=== PATIENT | male | born 1975 | race Caucasian/White ===

== ENCOUNTER 2021-03-31 12:45 | Inpatient (IN) ==
[2021-03-31] MEDS ORDERED: dexAMETHasone 6 MG in SYRINGE 0 ML IV ONE (13:20)
[2021-03-31] MEDS ORDERED: DEXAMETHASONE SOD INJ 4 MG/ML VIAL ONE (13:23)
[2021-03-31 13:59] LABS: Hematocrit (blood only) 45.2 % (42-52); Hemoglobin 15.5 g/dL (14.0-18.0); Immature Granulocytes # (auto) 0.01 K/uL (0.00-0.02); Immature Granulocytes % (auto) 0.1 %; Lymphocytes # (auto) 1.17 K/uL (1.2-3.4); Lymphocytes % (auto) 17.2 %; Mean Corpuscular Hemoglobin 31.5 pg (25-34); Mean Corpuscular Hgb Conc 34.3 g/dL (32-36); Mean Corpuscular Volume 91.9 fL (80-100); Mean Platelet Volume 9.9 fL (7.4-10.4); Monocytes # (auto) 0.23 K/uL (0.11-0.59); Monocytes % (auto) 3.4 %; Neutrophils # (auto) 5.39 K/uL (1.4-6.5); Neutrophils % (auto) 79.3 %; Platelet Count 248 K/uL (130-400); RDW Coefficient of Variation 12.7 % (11.5-14.5); RDW Standard Deviation 42.6 fL (36.4-46.3); Red Blood Count 4.92 M/uL (4.7-6.1)
[2021-03-31 14:09] LABS: Partial Thromboplastin Time 25.2 Seconds (21.0-31.0); Prothrombin Time 9.9 Seconds (9.0-12.0)
[2021-03-31 14:16] LABS: Albumin Level 2.8 gm/dl (3.4-5.0); BUN Creatinine Ratio 14.9 (10-20); Blood Urea Nitrogen 11 mg/dl (7-18); Calcium 8.5 mg/dl (8.5-10.1); Carbon Dioxide 29 mmol/L (21-32); Chloride 103 mmol/L (98-107); Creatinine Clr Calc Pharmacy 159.1 ml/min; Est GFR (African American) 128.9 ml/min; Est GFR (Non-African American) 111.2 ml/min; Glucose 225 mg/dl (70-99); Magnesium 2.1 mg/dl (1.8-2.4); Potassium 3.7 mmol/L (3.5-5.1); Sodium 138 mmol/L (136-145)
[2021-03-31 14:21] LABS: Alanine Aminotransferase 23 U/L (12-78); Albumin Globulin Ratio 0.6 (0.9-2); Alkaline Phosphatase 67 U/L (45-117); Aspartate Aminotransferase 22 U/L (15-37); Bilirubin,Total 0.9 mg/dl (0.2-1); Globulin 4.5 gm/dl (2.5-4.0); Total Protein 7.3 gm/dl (6.4-8.2); Troponin I < 0.015 ng/ml (0-0.045)
[2021-03-31 14:38] LABS: HCO3 VBG 30 mmol/L; PCO2 VBG 53 mmHg (38-50); PO2 VBG 25 mmHg; pH VBG 7.37 (7.36-7.41)
[2021-03-31 14:41] LABS: Oxygen Saturation VBG < 60.0 %
--- NOTE | 2021-03-31 14:59 | XRay Report ---
XR chest 1V portable CLINICAL HISTORY: SEPSIS COMPARISON STUDY: None FINDINGS: No pneumothorax. No pleural effusion. Patchy airspace opacities are seen throughout bilateral lungs likely representing multifocal pneumoni a. Cardiomediastinal silhouette is within normal limits in size. Pulmonary vasculature is obscured.. Osseous structures: unremarkable IMPRESSION: 1. Extensive patchy opacities throughout bilateral lungs could represent multifocal pneumonia/Covid. ACT 112: Negative or not required by law. The above report was generated using voice recognition software. It may contain grammatical, syntax o r spelling errors. Electronically signed by: Chichi Langston DO 03/31/2021 2:58 PM
[2021-03-31] MEDS ORDERED: OPTIRAY 320 125ml IV ONE (16:11)
--- NOTE | 2021-03-31 16:32 | CT Scan Report ---
CT ANGIOGRAM OF THE CHEST CLINICAL HISTORY: Dyspnea. Hypoxia. COMPARISON STUDY: Chest x-ray dated 03/31/2021. TECHNIQUE: Following the IV administration of 118 cc of Optiray 320, CT angiogram of the chest was pe rformed from the upper abdomen to the thoracic inlet utilizing the pulmonary embolus protocol. Images are reviewed in the axial, sagittal, and coronal planes. 3-D MIPS images are created and assessed. I V contrast was administered without complication. A dose lowering technique was utilized adhering to the principles of ALARA. The examination is significantly compromised by motion artifact. CT DOSE: 620.97 mGycm FINDINGS: Thyroid: Imaged portions of the thyroid gland are normal in size and attenuation. Thoracic aorta: The thoracic aorta is normal in caliber and demonstrates standard 3-vessel arch anato my. No dissection is seen. Pulmonary vasculature: The pulmonary trunk is normal in caliber. There are no filling defects identif ied in main, lobar, or proximal segmental pulmonary branches to suggest pulmonary embolus. Evaluation of the segmental and subsegmental branches is severely degraded by motion artifact. Heart: The heart is top normal in size and without pericardial effusion. Lungs and pleural spaces: Evaluation of the lung parenchyma is significantly degraded by motion artif act. Multifocal airspace consolidation is seen throughout both lungs. No pleural effusion is identifi ed. The trachea and central airways are clear. Mediastinum: There are numerous prominent subcentimeter mediastinal nodes. Julieth: Mildly enlarged hilar nodes measure up to 14 mm in short axis. Axillae: There is no axillary lymphadenopathy. Upper abdomen: The spleen is enlarged measuring at least 14.3 cm in length. The liver appears steatot ic. A small hiatal hernia is noted. Skeletal structures: No lytic or blastic bony lesions are seen. IMPRESSION: 1. Significantly motion compromised examination. 2. There is no evidence of central pulmonary embolus in the main, lobar, or proximal segmental pulmon coleman arteries. 3. Multifocal airspace consolidation is seen throughout both lungs, typical in appearance for multifo yuliya pneumonia. Radiographic follow-up to resolution is recommended. 4. No pleural effusion. 5. The liver appears steatotic and there is splenomegaly. 6. Mildly enlarged mediastinal and hilar nodes are likely reactive. ACT 112: Negative or not required by law. Electronically signed by: Osman Ac M.D. 03/31/2021 4:31 PM
--- NOTE | 2021-03-31 17:31 | History & Physical Report ---
Date of Service March 31, 2021 Assessment & Plan (1) Pneumonia due to COVID-19 virus: Plan: Extensive, severe b/l COVID-19 pneumonia. Worsening respiratory symptoms in the last 48 hours. He is only about 5 days into his illness. He is at high risk of further decompensation. Plan - * airborne isolation * start 5-day course of Remdesivir, first dose now * received first dose of dexamethasone 6mg in ER; continue such upon admission for up to 10 days if necessary * DVT proph with lovenox BID * flutter valve, incentive spirometry * self-proning discussed in great detail & encouraged * NC O2 support * mucinex, combivent prn * procal wnl and low suspicion for bacterial superinfection thus defer on antibiotics * if he worsens clinically would advocate for BIPAP given his probable YEIMI and his mildly elevated pCO2 on VBG * check baseline CRP and d-dimer in AM * continue asa 81mg daily (2) Acute respiratory failure with hypoxia: Plan: 2nd to COVID-19 pneumonia. He does not show signs of volume overload/acute CHF. see #1 above. (3) Essential hypertension: Plan: Cont IJEOMA. Add beta ariana if additional BP control is needed. (4) Type 2 diabetes mellitus: Plan: Uncontrolled in the face of COVID infection. Start lantus 10 units BID. Start novolog sliding scale. Check a1c in am. Hold metformin. (5) Morbid obesity: Plan: BMI 47 (6) Snoring: Plan: Patient with likely severe YEIMI based on history. Low threshold for BIPAP during this stay with any clinical worsening. Would benefit from sleep study down the line. (7) Back pain: Plan: Seen in ER for such about 1 week ago. Steroids for #1 should help this issue. (8) DVT prophylaxis: Plan: lovenox 0.5mg/kg BID due to high risk of VTE while hospitalized w/ COVID-19 Plan: 1 liter of isotonic fluids overnight then saline lock. patient with poor oral intake over last 3-4 days. patient at high risk of clinical worsening while hospitalized. History of Present Illness Chief Complaint: severe cough with dyspnea Primary Care Provider: Nico Arango PA-C 45yo male with h/o T2DM and HTN presents with illness since Saturday of this week. Patient states he started with runny nose and congestion at that time along with fatigue and loss of appetite. He felt well enough to go to work on Saturday but since then all symptoms have worsened. No fevers, but having cold chills & sweats. He lost his sense of taste yesterday. Has had productive cough for several days, much worse in the last 2 days. He then began to have significant BROCK yesterday, and this progressed today. He can only take a few steps before he becomes severely dyspneic. No diarrhea or emesis. Did not have his COVID vaccine. He mentions he was in the ER last weekend for "sciatica" of the LLE. Was placed on prednisone at that time. Allergies Allergy/AdvReac Type Severity Reaction Status Date / Time No Known Allergies Allergy Unverified 03/31/21 16:35 Home Medications Medication Instructions Recorded Confirmed Type aspirin 81 mg tablet,delayed 81 mg PO QAM 03/24/21 03/31/21 History release cyanocobalamin (vitamin B-12) 500 0 mcg PO QAM 03/24/21 03/31/21 History mcg tablet (Vitamin B-12) garlic 400 mg tablet,delayed 0 mg PO QAM 03/24/21 03/31/21 History release lisinopril 10 mg tablet 10 mg PO QAM 03/24/21 03/31/21 History metformin 1,000 mg tablet 500 mg PO BID 03/24/21 03/31/21 History multivitamin 1 tab PO QAM 03/24/21 03/31/21 History qwpophams-AYR-EW-acetaminophen 7.5 30 ml PO QID PRN 03/31/21 03/31/21 History mg-60 [id number]/30mL oral liqd prednisone 20 mg tablet 20 mg PO QAM 03/31/21 03/31/21 History Past Med/Surg History Medical History (Updated 04/01/21 @ 01:26 by Vishnu Arriaga) Essential hypertension Morbid obesity Type 2 diabetes mellitus Surgical History (Updated 03/31/21 @ 19:00 by Robert Connors) No pertinent past surgical history Family History (Updated 03/31/21 @ 18:18 by Vishnu Arriaga) Father Diabetes ESRD (end stage renal disease) on dialysis Social History (Updated 03/31/21 @ 18:18 by Vishnu Arriaga) Smoking Status: Former smoker Tobacco Type: Cigarettes Second Hand Exposure: No; Do You Dip or Chew Tobacco: No; Tobacco Cessation Education Requested by Patient: No Hx Alcohol Use: No Hx Substance Use: No Preferred Language: Guinean Communication Ability: Effective 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 Beliefs That Will Affect Care: Holiness Holiness Beliefs: taoist marital status: Legally Current Living Situation: Family Current Living Situation Comment: lives with ex- and her 2 children current occupational status: employed current occupation: [employer] How many Children do You have: 1 How many Children do You have Comment: 24yo adult son Other Information That Helps Us Care for You: No Feels Safe at Home: Yes Safety Concerns: Feels Safe At This Time Assistive Devices: None Review of Systems Constitutional: + chills, + body aches, + fatigue, + weakness and + anorexia; no fever Eyes: no discharge Ear, Nose, Mouth, Throat: no ear pain, no sore throat and no dysphagia lost his taste yesterday Respiratory: + cough, + chest congestion, + dyspnea, + dyspnea on exertion, + pain on inspiration, + pain with cough, + snoring and + wheezing Cardiovascular: + chest pain (w/ cough); no edema Gastrointestinal: no abdominal pain, no nausea, no vomiting and no diarrhea/loose stools Genitourinary: no dysuria Musculoskeletal: + back pain Integumentary: no rash Neurologic: + radiating pain (left hip ) Psychiatric: no depression Endocrine: does not check BSGs at home Physical Exam Constitutional: + acute distress (mild tachypnea but able to talk in full sentences ) and + morbidly obese; no altered mental status Eyes: PERRL ENMT: Mouth: + dry oral mucous membranes; no oral mucosal abnormality Neck: trachea midline, no thyromegaly Respiratory: + cough and + tachypneic; no retractions Auscultation: + diminished lung sounds (bases) and + rales (diffuse b/l, at least 1/2 way up posterior back ); no wheezes Cardiovascular: Rate/Rhythm: regular rate and regular rhythm Heart Sounds: normal S1 and normal S2; no murmur Vessels: posterior tibial pulses present and dorsalis pedis pulses present; no JVD Extremities: no edema Gastrointestinal (Abdomen): Inspection/Auscultation: normal bowel sounds; abdomen not distended Percussion/Palpation: abdomen soft; no hepatosplenomegaly (spleen tip may be palpable ) Musculoskeletal: Extremities: strength 5/5 throughout; no clubbing Skin: no rashes Neurologic: moves all extremities; no focal motor deficits Psychiatric: A+Ox3, euthymic affect Lymphatic: + cervical lymphadenopathy (shotty b/l ) Results & Data Results & Data ([facility]) Vital Signs (Past 12 Hours) Vital Signs Temp Pulse Resp BP Pulse Ox 03/31/21 16:30 83 34 H 92 03/31/21 16:00 89 38 H 95 03/31/21 15:30 98 H 38 H 95 03/31/21 15:00 90 36 H 94 03/31/21 14:32 91 H 25 H 95 03/31/21 14:00 90 36 H 126/89 95 03/31/21 13:44 90 39 H 135/78 96 03/31/21 13:20 91 H 25 H 95 03/31/21 13:16 95 03/31/21 13:10 36.9 C 96 H 20 144/76 H 86 L Laboratory Results Laboratory Results - last 24 hr 03/31/21 03/31/21 03/31/21 13:15 13:45 13:45 WBC 6.80 RBC 4.92 Hgb 15.5 Hct 45.2 MCV 91.9 MCH 31.5 MCHC 34.3 RDW Std Deviation 42.6 RDW Coeff of Glendy 12.7 Plt Count 248 MPV 9.9 Immature Gran % (Auto) 0.1 Neut % (Auto) 79.3 Lymph % (Auto) 17.2 Storey % (Auto) 3.4 Eos % (Auto) 0.0 Baso % (Auto) 0.0 Neut # (Auto) 5.39 Lymph # (Auto) 1.17 L Storey # (Auto) 0.23 Eos # (Auto) 0.00 Baso # (Auto) 0.00 Immature Gran # (Auto) 0.01 PT 9.9 INR 1.0 APTT 25.2 PTT Ratio 1.0 VBG pH VBG pCO2 VBG pO2 VBG HCO3 VBG O2 Saturation VBG Base Excess Barometric Pressure Sodium 138 Potassium 3.7 Chloride 103 Carbon Dioxide 29 Anion Gap 6.0 BUN 11 Creatinine 0.73 Est Cr Clr Drug Dosing 159.1 Est GFR ( Amer) 128.9 Est GFR (Non-Af Amer) 111.2 BUN/Creatinine Ratio 14.9 Glucose 225 H POC Glucose Lactate Calcium 8.5 Magnesium 2.1 Total Bilirubin 0.9 AST 22 ALT 23 Alkaline Phosphatase 67 Troponin I < 0.015 Total Protein 7.3 Albumin 2.8 L Globulin 4.5 H Albumin/Globulin Ratio 0.6 L Procalcitonin COVID-19 Eval Order SARS-CoV-2 (PCR) 03/31/21 03/31/21 03/31/21 13:45 14:24 14:24 WBC RBC Hgb Hct MCV MCH MCHC RDW Std Deviation RDW Coeff of Glendy Plt Count MPV Immature Gran % (Auto) Neut % (Auto) Lymph % (Auto) Storey % (Auto) Eos % (Auto) Baso % (Auto) Neut # (Auto) Lymph # (Auto) Storey # (Auto) Eos # (Auto) Baso # (Auto) Immature Gran # (Auto) PT INR APTT PTT Ratio VBG pH 7.37 VBG pCO2 53 H VBG pO2 25 VBG HCO3 30 VBG O2 Saturation < 60.0 VBG Base Excess 3.0 Barometric Pressure 735.4 Sodium Potassium Chloride Carbon Dioxide Anion Gap BUN Creatinine Est Cr Clr Drug Dosing Est GFR ( Amer) Est GFR (Non-Af Amer) BUN/Creatinine Ratio Glucose POC Glucose Lactate 1.6 Calcium Magnesium Total Bilirubin AST ALT Alkaline Phosphatase Troponin I Total Protein Albumin Globulin Albumin/Globulin Ratio Procalcitonin < 0.05 COVID-19 Eval Order SARS-CoV-2 (PCR) 03/31/21 03/31/21 03/31/21 15:00 15:00 21:39 WBC RBC Hgb Hct MCV MCH MCHC RDW Std Deviation RDW Coeff of Glendy Plt Count MPV Immature Gran % (Auto) Neut % (Auto) Lymph % (Auto) Storey % (Auto) Eos % (Auto) Baso % (Auto) Neut # (Auto) Lymph # (Auto) Storey # (Auto) Eos # (Auto) Baso # (Auto) Immature Gran # (Auto) PT INR APTT PTT Ratio VBG pH VBG pCO2 VBG pO2 VBG HCO3 VBG O2 Saturation VBG Base Excess Barometric Pressure Sodium Potassium Chloride Carbon Dioxide Anion Gap BUN Creatinine Est Cr Clr Drug Dosing Est GFR ( Amer) Est GFR (Non-Af Amer) BUN/Creatinine Ratio Glucose POC Glucose 257 H Lactate Calcium Magnesium Total Bilirubin AST ALT Alkaline Phosphatase Troponin I Total Protein Albumin Globulin Albumin/Globulin Ratio Procalcitonin COVID-19 Eval Order Covid19 at [facility] SARS-CoV-2 (PCR) POSITIVE A* Diagnostic Findings Chest CTA 03/31/21 13:20 CT ANGIOGRAM OF THE CHEST CLINICAL HISTORY: Dyspnea. Hypoxia. COMPARISON STUDY: Chest x-ray dated 03/31/2021. TECHNIQUE: Following the IV administration of 118 cc of Optiray 320, CT angiogram of the chest was performed from the upper abdomen to the thoracic inlet utilizing the pulmonary embolus protocol. Images are reviewed in the axial, sagittal, and coronal planes. 3-D MIPS images are created and assessed. IV contrast was administered without complication. A dose lowering technique w as utilized adhering to the principles of ALARA. The examination is significantly compromised by motion artifact. CT DOSE: 620.97 mGycm FINDINGS: Thyroid: Imaged portions of the thyroid gland are normal in size and attenuation. Thoracic aorta: The thoracic aorta is normal in caliber and demonstrates standard 3-vessel arch anatomy. No dissection is seen. Pulmonary vasculature: The pulmonary trunk is normal in caliber. There are no filling defects identified in main, lobar, or proximal segmental pulmonary branches to suggest pulmonary embolus. Evaluation of the segmental and subsegmental branches is severely degraded by motion artifact. Heart: The heart is top normal in size and without pericardial effusion. Lungs and pleural spaces: Evaluation of the lung parenchyma is significantly degraded by motion artifact. Multifocal airspace consolidation is seen throughout both lungs. No pleural effusion is identified. The trachea and central airways are clear. Mediastinum: There are numerous prominent subcentimeter mediastinal nodes. Julieth: Mildly enlarged hilar nodes measure up to 14 mm in short axis. Axillae: There is no axillary lymphadenopathy. Upper abdomen: The spleen is enlarged measuring at least 14.3 cm in length. The liver appears steatotic. A small hiatal hernia is noted. Skeletal structures: No lytic or blastic bony lesions are seen. IMPRESSION: 1. Significantly motion compromised examination. 2. There is no evidence of central pulmonary embolus in the main, lobar, or proximal segmental pulmonary arteries. 3. Multifocal airspace consolidation is seen throughout both lungs, typical in appearance for multifocal pneumonia. Radiographic follow-up to resolution is recommended. 4. No pleural effusion. 5. The liver appears steatotic and there is splenomegaly. 6. Mildly enlarged mediastinal and hilar nodes are likely reactive. ACT 112: Negative or not required by law. Electronically signed by: Osman Ac M.D. 03/31/2021 4:31 PM Chest X-Ray 03/31/21 13:20 XR chest 1V portable CLINICAL HISTORY: SEPSIS COMPARISON STUDY: None FINDINGS: No pneumothorax. No pleural effusion. Patchy airspace opacities are seen throughout bilateral lungs likely representing multifocal pneumonia. Cardiomediastinal silhouette is within normal limits in size. Pulmonary vasculature is obscured.. Osseous structures: unremarkable IMPRESSION: 1. Extensive patchy opacities throughout bilateral lungs could represent multifocal pneumonia/Covid. ACT 112: Negative or not required by law. The above report was generated using voice recognition software. It may contain grammatical, syntax or spelling errors. Electronically signed by: Chichi Langston DO 03/31/2021 2:58 PM EKG - my reading - NSR, NS ST changes III, AVF. Code Status & VTE Plan Code Status full code PG Care Time/CCT Total # of Minutes Spent Total Time Spent with Patient: Total time spent is greater than 50% in coordination of care (as documented) at patient's floor/unit and/or counseling patient: Coding Level of Care Code 11617 Initial Inpt Care Lvl 3 Diagnoses Pneumonia due to COVID-19 virus U07.1; J12.82 Acute respiratory failure with hypoxia J96.01 Essential hypertension I10 Type 2 diabetes mellitus E11.9 Morbid obesity E66.01 DVT prophylaxis Z29.9 Snoring R06.83 Back pain M54.5 Back pain laterality: left Back pain location: low back pain Chronicity: acute Sciatica presence: unspecified whether sciatica present (1) Back pain Back pain laterality: left Back pain location: low back pain Chronicity: acute Sciatica presence: unspecified whether sciatica present Qualified Code(s): M54.5 - Low back pain
[2021-03-31] MEDS ORDERED: REMDESIVIR 200 MG in SODIUM CHLORIDE 0.9% 210 ML IV ONE (18:45)
--- NOTE | 2021-03-31 19:03 | Emergency Department Note ---
History of Present Illness General Chief Complaint: Shortness of Breath/Dyspnea Stated Complaint: lungs are conjested, hard to breath Time Seen by Provider: 03/31/21 13:16 History of Present Illness Provider Complaint: shortness of breath and cough Onset (ago): day(s) (2) Maximum Pain Intensity: 5 Relieved By: + nothing Exacerbated By: + nothing Associated symptoms: + cough, + sputum production, + nausea/vomiting and + chest congestion; no orthopnea, no polyuria, no paresthesias, no palpitations, no hemoptysis, no diaphoresis, no syncope, no abdominal pain, no rash, no dizziness or no lightheadedness HPI Narrative: Patient is unvaccinated against COVID-19 stating where he works is not affected by Covid. Home Medications Medication Instructions Recorded Confirmed Type aspirin 81 mg tablet,delayed 81 mg PO QAM 03/24/21 03/31/21 History release cyanocobalamin (vitamin B-12) 500 0 mcg PO QAM 03/24/21 03/31/21 History mcg tablet (Vitamin B-12) garlic 400 mg tablet,delayed 0 mg PO QAM 03/24/21 03/31/21 History release lisinopril 10 mg tablet 10 mg PO QAM 03/24/21 03/31/21 History metformin 1,000 mg tablet 500 mg PO BID 03/24/21 03/31/21 History multivitamin 1 tab PO QAM 03/24/21 03/31/21 History [id number]-acetaminophen 7.5 30 ml PO QID PRN 03/31/21 03/31/21 History mg-60 [id number]/30mL oral liqd prednisone 20 mg tablet 20 mg PO QAM 03/31/21 03/31/21 History Allergies Allergy/AdvReac Type Severity Reaction Status Date / Time No Known Allergies Allergy Unverified 03/31/21 16:35 Past Med/Surg History Medical History (Updated 03/31/21 @ 19:11 by Robert Connors) Essential hypertension Morbid obesity Type 2 diabetes mellitus Surgical History (Updated 03/31/21 @ 19:00 by Robert Connors) No pertinent past surgical history Family History (Updated 03/31/21 @ 18:18 by Vishnu Arriaga) Father Diabetes ESRD (end stage renal disease) on dialysis Social History (Updated 03/31/21 @ 18:18 by Vishnu Arriaga) Smoking Status: Never smoker Tobacco Type: Cigarettes Hx Alcohol Use: No Preferred Language: Slovak marital status: Legally Current Living Situation Comment: lives with ex- and her 2 children current occupational status: employed current occupation: [employer] How many Children do You have: 1 How many Children do You have Comment: 24yo adult son Feels Safe at Home: Yes Review of Systems A total of 10 systems reviewed and were otherwise negative Physical Exam Vital Signs: Vital Signs - 24 hr 03/31/21 13:10 03/31/21 13:16 03/31/21 13:20 Temperature 36.9 C Temperature Source Temporal Artery Sc an Pulse Rate 96 H 91 H Pulse Rate from Sp O2 Sensor Pulse Rhythm Regular Regular Pulse Strength Normal Respiratory Rate 20 25 H Respiratory Effort / Characteristics Non-Labored Sponta neous Non-Labored Sponta neous Respiratory Depth Normal Normal Respiratory Patter n Regular Regular Blood Pressure 144/76 H Blood Pressure V[place] n 98 Pulse Oximetry 86 L 95 95 Oxygen Delivery Me thod Room Air Room Air Room Air Oxygen Flow Rate Sepsis Recent Feve r Within 48 Hours No Sepsis New/Unexpla ined Change in Men radha Status N/A Sepsis Action Take n by Nursing No Action Required 03/31/21 13:44 03/31/21 14:00 03/31/21 14:32 Temperature Temperature Source Pulse Rate 90 90 91 H Pulse Rate from Sp O2 Sensor 90 91 H 91 H Pulse Rhythm Pulse Strength Respiratory Rate 39 H 36 H 25 H Respiratory Effort / Characteristics Respiratory Depth Respiratory Patter n Blood Pressure 135/78 126/89 Blood Pressure Vinita n 97 101 Pulse Oximetry 96 95 95 Oxygen Delivery Me thod Oxygen Flow Rate Sepsis Recent Feve r Within 48 Hours Sepsis New/Unexpla ined Change in Men radha Status Sepsis Action Take n by Nursing 03/31/21 15:00 03/31/21 15:30 03/31/21 16:00 Temperature Temperature Source Pulse Rate 90 98 H 89 Pulse Rate from Sp O2 Sensor 90 90 90 Pulse Rhythm Pulse Strength Respiratory Rate 36 H 38 H 38 H Respiratory Effort / Characteristics Respiratory Depth Respiratory Patter n Blood Pressure Blood Pressure [place] n Pulse Oximetry 94 95 95 Oxygen Delivery Me thod Nasal Cannula Nasal Cannula Nasal Cannula Oxygen Flow Rate 2 2 2 Sepsis Recent Feve r Within 48 Hours Sepsis New/Unexpla ined Change in Men radha Status Sepsis Action Take n by Nursing 03/31/21 16:30 03/31/21 17:00 03/31/21 17:30 Temperature Temperature Source Pulse Rate 83 81 81 Pulse Rate from Sp O2 Sensor 83 81 81 Pulse Rhythm Pulse Strength Respiratory Rate 34 H 37 H 33 H Respiratory Effort / Characteristics Respiratory Depth Respiratory Patter n Blood Pressure Blood Pressure [place] n Pulse Oximetry 92 95 94 Oxygen Delivery Me thod Nasal Cannula Oxygen Flow Rate 2 Sepsis Recent Feve r Within 48 Hours Sepsis New/Unexpla ined Change in Men radha Status Sepsis Action Take n by Nursing 03/31/21 18:00 03/31/21 18:30 Temperature Temperature Source Pulse Rate 87 Pulse Rate from Sp O2 Sensor 87 Pulse Rhythm Pulse Strength Respiratory Rate 33 H 35 H Respiratory Effort / Characteristics Spontaneous Labore d Respiratory Depth Respiratory Patter n Blood Pressure Blood Pressure [place] n Pulse Oximetry 92 94 Oxygen Delivery Me thod Nasal Cannula Oxygen Flow Rate 3 Sepsis Recent Feve r Within 48 Hours Sepsis New/Unexpla ined Change in Men radha Status Sepsis Action Take n by Nursing Physical Exam: Physical Exam GENERAL: He is oriented to person, place, and time. He appears well-developed and well-nourished. He does not appear distressed. HENT: Exam performed. - Head: Normocephalic and atraumatic. - Right Ear: External ear normal. No mastoid tenderness. - Left Ear: External ear normal. No mastoid tenderness. - Mouth/Throat: The oropharynx is clear and moist. No trismus in the jaw. No dental abscesses or uvula swelling. No oropharyngeal exudate or tonsillar abscesses. EYES: Conjunctivae and EOM are normal. Pupils are equal, round, and reactive to light. Right eye exhibits no discharge. Left eye exhibits no discharge. No scleral icterus. NECK: Normal range of motion. Neck supple. No JVD present. No spinous process tenderness present. No carotid bruit present. No rigidity. No tracheal deviation and normal range of motion present. No Brudzinski's sign and no Kernig's sign noted. CV: Tachycardic rate, regular rhythm, normal heart sounds and intact distal pulses. There is no peripheral edema. Palpable radial pulses bue. PULM/CHEST: Rhonchi bilaterally. ABD: The abdomen is soft. Bowel sounds are normal. He has no distension. No mass is present. There is no tenderness. There is no rebound, no guarding, no Mccollum's sign and no tenderness at McBurney's point. Rovsig negative. MUSC/SKEL: Normal range of motion. There is no peripheral edema, tenderness or deformity. LYMPH: No cervical adenopathy. NEURO: He is alert and oriented to person, place, and time. He has normal strength. No cranial nerve deficit or sensory deficit. Coordination and gait normal. GCS eye subscore is 4. GCS verbal subscore is 5. GCS motor subscore is 6 . Cerebellar tests wnl. SKIN: Skin is warm and dry. He is not diaphoretic. PSYCH: He has a normal mood and affect. Behavior is normal. Judgment and thought content normal. Course Course 1316: The patient was evaluated in room C8. A complete history and physical exam was performed Cardiac monitoring: An order was placed for continuous cardiac monitoring. The monitor shows a rate of 90 with sinus rhythm On arrival in the room patient is hypoxic on room air at 84 to 86%. Patient was placed on supplemental oxygen via nasal cannula 3 L which did improve his oxygen saturation. Decadron 6 mg IV push ordered for the patient as he is hypoxic and not vaccinated against COVID-19. 1710: Vital signs stable on supplemental oxygen via nasal cannula. Labs are within normal limits. Patient is COVID-19 positive. Imaging does show bilateral groundglass opacities consistent with Covid pneumonia. Patient will be admitted to the [facility] team given his hypoxia, age and imaging findings, and being COVID-[address] Arguello team will be notified. Administered Medications Discontinued Medications Dexamethasone (Dexamethasone Sod Inj 4 Mg/Ml Vial) Confirm Administered Dose 8 mg .ROUTE .STK-MED ONE Stop: 03/31/21 13:24 Last Admin: 03/31/21 13:42 Dose: Not Given Documented by: [id number] Dexamethasone 6 mg/ Syringe 1.5 mls @ 1 mls/min IV ONE ONE Stop: 03/31/21 13:21 Last Admin: 03/31/21 13:42 Dose: 1 mls/min Documented by: [id number] Ioversol (Optiray 320 125ml) 118 ml IV ONCE ONE Stop: 03/31/21 16:12 Last Admin: 03/31/21 16:12 Dose: 118 ml Documented by: [id number] Medical Decision Making Laboratory Data Result diagrams: 03/31/21 13:45 03/31/21 13:45 Lab Results 03/31/21 03/31/21 03/31/21 Range/Units 13:15 13:45 13:45 WBC 6.80 (4.8-10.8) K/uL RBC 4.92 (4.7-6.1) M/uL Hgb 15.5 (14.0-18.0) g/dL Hct 45.2 (42-52) % MCV 91.9 (80-100) fL MCH 31.5 (25-34) pg MCHC 34.3 (32-36) g/dL RDW Std Deviation 42.6 (36.4-46.3) fL RDW Coeff of Glendy 12.7 (11.5-14.5) % Plt Count 248 (130-400) K/uL MPV 9.9 (7.4-10.4) fL Immature Gran % (Auto) 0.1 % Neut % (Auto) 79.3 % Lymph % (Auto) 17.2 % Love % (Auto) 3.4 % Eos % (Auto) 0.0 % Baso % (Auto) 0.0 % Neut # (Auto) 5.39 (1.4-6.5) K/uL Lymph # (Auto) 1.17 L (1.2-3.4) K/uL Love # (Auto) 0.23 (0.11-0.59) K/uL Eos # (Auto) 0.00 (0-0.5) K/uL Baso # (Auto) 0.00 (0-0.2) K/uL Immature Gran # (Auto) 0.01 (0.00-0.02) K/uL PT 9.9 (9.0-12.0) Seconds INR 1.0 (0.9-1.1) APTT 25.2 (21.0-31.0) Seconds PTT Ratio 1.0 VBG pH (7.36-7.41) VBG pCO2 (38-50) mmHg VBG pO2 mmHg VBG HCO3 mmol/L VBG O2 Saturation % VBG Base Excess mEq/L Barometric Pressure mm/Hg Sodium 138 (136-145) mmol/L Potassium 3.7 (3.5-5.1) mmol/L Chloride 103 (98-107) mmol/L Carbon Dioxide 29 (21-32) mmol/L Anion Gap 6.0 (3-11) BUN 11 (7-18) mg/dl Creatinine 0.73 (0.6-1.4) mg/dl Est Cr Clr Drug Dosing 159.1 ml/min Est GFR ( Amer) 128.9 ml/min Est GFR (Non-Af Amer) 111.2 ml/min BUN/Creatinine Ratio 14.9 (10-20) Glucose 225 H (70-99) mg/dl Lactate (0.4-2.0) mmol/L Calcium 8.5 (8.5-10.1) mg/dl Magnesium 2.1 (1.8-2.4) mg/dl Total Bilirubin 0.9 (0.2-1) mg/dl AST 22 (15-37) U/L ALT 23 (12-78) U/L Alkaline Phosphatase 67 (45-117) U/L Troponin I < 0.015 (0-0.045) ng/ml Total Protein 7.3 (6.4-8.2) gm/dl Albumin 2.8 L (3.4-5.0) gm/dl Globulin 4.5 H (2.5-4.0) gm/dl Albumin/Globulin Ratio 0.6 L (0.9-2) Procalcitonin (0-0.5) ng/ml COVID-19 Eval Order SARS-CoV-2 (PCR) (Negative) 03/31/21 03/31/21 03/31/21 Range/Units 13:45 14:24 14:24 WBC (4.8-10.8) K/uL RBC (4.7-6.1) M/uL Hgb (14.0-18.0) g/dL Hct (42-52) % MCV (80-100) fL MCH (25-34) pg MCHC (32-36) g/dL RDW Std Deviation (36.4-46.3) fL RDW Coeff of Glendy (11.5-14.5) % Plt Count (130-400) K/uL MPV (7.4-10.4) fL Immature Gran % (Auto) % Neut % (Auto) % Lymph % (Auto) % Love % (Auto) % Eos % (Auto) % Baso % (Auto) % Neut # (Auto) (1.4-6.5) K/uL Lymph # (Auto) (1.2-3.4) K/uL Love # (Auto) (0.11-0.59) K/uL Eos # (Auto) (0-0.5) K/uL Baso # (Auto) (0-0.2) K/uL Immature Gran # (Auto) (0.00-0.02) K/uL PT (9.0-12.0) Seconds INR (0.9-1.1) APTT (21.0-31.0) Seconds PTT Ratio VBG pH 7.37 (7.36-7.41) VBG pCO2 53 H (38-50) mmHg VBG pO2 25 mmHg VBG HCO3 30 mmol/L VBG O2 Saturation < 60.0 % VBG Base Excess 3.0 mEq/L Barometric Pressure 735.4 mm/Hg Sodium (136-145) mmol/L Potassium (3.5-5.1) mmol/L Chloride (98-107) mmol/L Carbon Dioxide (21-32) mmol/L Anion Gap (3-11) BUN (7-18) mg/dl Creatinine (0.6-1.4) mg/dl Est Cr Clr Drug Dosing ml/min Est GFR ( Amer) ml/min Est GFR (Non-Af Amer) ml/min BUN/Creatinine Ratio (10-20) Glucose (70-99) mg/dl Lactate 1.6 (0.4-2.0) mmol/L Calcium (8.5-10.1) mg/dl Magnesium (1.8-2.4) mg/dl Total Bilirubin (0.2-1) mg/dl AST (15-37) U/L ALT (12-78) U/L Alkaline Phosphatase (45-117) U/L Troponin I (0-0.045) ng/ml Total Protein (6.4-8.2) gm/dl Albumin (3.4-5.0) gm/dl Globulin (2.5-4.0) gm/dl Albumin/Globulin Ratio (0.9-2) Procalcitonin < 0.05 (0-0.5) ng/ml COVID-19 Eval Order SARS-CoV-2 (PCR) (Negative) 03/31/21 03/31/21 Range/Units 15:00 15:00 WBC (4.8-10.8) K/uL RBC (4.7-6.1) M/uL Hgb (14.0-18.0) g/dL Hct (42-52) % MCV (80-100) fL MCH (25-34) pg MCHC (32-36) g/dL RDW Std Deviation (36.4-46.3) fL RDW Coeff of Glendy (11.5-14.5) % Plt Count (130-400) K/uL MPV (7.4-10.4) fL Immature Gran % (Auto) % Neut % (Auto) % Lymph % (Auto) % Love % (Auto) % Eos % (Auto) % Baso % (Auto) % Neut # (Auto) (1.4-6.5) K/uL Lymph # (Auto) (1.2-3.4) K/uL Love # (Auto) (0.11-0.59) K/uL Eos # (Auto) (0-0.5) K/uL Baso # (Auto) (0-0.2) K/uL Immature Gran # (Auto) (0.00-0.02) K/uL PT (9.0-12.0) Seconds INR (0.9-1.1) APTT (21.0-31.0) Seconds PTT Ratio VBG pH (7.36-7.41) VBG pCO2 (38-50) mmHg VBG pO2 mmHg VBG HCO3 mmol/L VBG O2 Saturation % VBG Base Excess mEq/L Barometric Pressure mm/Hg Sodium (136-145) mmol/L Potassium (3.5-5.1) mmol/L Chloride (98-107) mmol/L Carbon Dioxide (21-32) mmol/L Anion Gap (3-11) BUN (7-18) mg/dl Creatinine (0.6-1.4) mg/dl Est Cr Clr Drug Dosing ml/min Est GFR ( Amer) ml/min Est GFR (Non-Af Amer) ml/min BUN/Creatinine Ratio (10-20) Glucose (70-99) mg/dl Lactate (0.4-2.0) mmol/L Calcium (8.5-10.1) mg/dl Magnesium (1.8-2.4) mg/dl Total Bilirubin (0.2-1) mg/dl AST (15-37) U/L ALT (12-78) U/L Alkaline Phosphatase (45-117) U/L Troponin I (0-0.045) ng/ml Total Protein (6.4-8.2) gm/dl Albumin (3.4-5.0) gm/dl Globulin (2.5-4.0) gm/dl Albumin/Globulin Ratio (0.9-2) Procalcitonin (0-0.5) ng/ml COVID-19 Eval Order Covid19 at [facility] SARS-CoV-2 (PCR) POSITIVE A* (Negative) Imaging Data Radiologist's Impression: Chest CTA 03/31/21 13:20 CT ANGIOGRAM OF THE CHEST CLINICAL HISTORY: Dyspnea. Hypoxia. COMPARISON STUDY: Chest x-ray dated 03/31/2021. TECHNIQUE: Following the IV administration of 118 cc of Optiray 320, CT angiogram of the chest was performed from the upper abdomen to the thoracic inlet utilizing the pulmonary embolus protocol. Images are reviewed in the axial, sagittal, and coronal planes. 3-D MIPS images are created and assessed. IV contrast was administered without complication. A dose lowering technique was utilized adhering to the principles of ALARA. The examination is significantly compromised by motion artifact. CT DOSE: 620.97 mGycm FINDINGS: Thyroid: Imaged portions of the thyroid gland are normal in size and attenuation. Thoracic aorta: The thoracic aorta is normal in caliber and demonstrates standard 3-vessel arch anatomy. No dissection is seen. Pulmonary vasculature: The pulmonary trunk is normal in caliber. There are no filling defects identified in main, lobar, or proximal segmental pulmonary branches to suggest pulmonary embolus. Evaluation of the segmental and subsegmental branches is severely degraded by motion artifact. Heart: The heart is top normal in size and without pericardial effusion. Lungs and pleural spaces: Evaluation of the lung parenchyma is significantly degraded by motion artifact. Multifocal airspace consolidation is seen throughout both lungs. No pleural effusion is identified. The trachea and central airways are clear. Mediastinum: There are numerous prominent subcentimeter mediastinal nodes. Julieth: Mildly enlarged hilar nodes measure up to 14 mm in short axis. Axillae: There is no axillary lymphadenopathy. Upper abdomen: The spleen is enlarged measuring at least 14.3 cm in length. The liver appears steatotic. A small hiatal hernia is noted. Skeletal structures: No lytic or blastic bony lesions are seen. IMPRESSION: 1. Significantly motion compromised examination. 2. There is no evidence of central pulmonary embolus in the main, lobar, or proximal segmental pulmonary arteries. 3. Multifocal airspace consolidation is seen throughout both lungs, typical in appearance for multifocal pneumonia. Radiographic follow-up to resolution is recommended. 4. No pleural effusion. 5. The liver appears steatotic and there is splenomegaly. 6. Mildly enlarged mediastinal and hilar nodes are likely reactive. ACT 112: Negative or not required by law. Electronically signed by: Osman Ac M.D. 03/31/2021 4:31 PM Chest X-Ray 03/31/21 13:20 XR chest 1V portable CLINICAL HISTORY: SEPSIS COMPARISON STUDY: None FINDINGS: No pneumothorax. No pleural effusion. Patchy airspace opacities are seen throughout bilateral lungs likely representing multifocal pneumonia. Cardiomediastinal silhouette is within normal limits in size. Pulmonary vasculature is obscured.. Osseous structures: unremarkable IMPRESSION: 1. Extensive patchy opacities throughout bilateral lungs could represent multifocal pneumonia/Covid. ACT 112: Negative or not required by law. The above report was generated using voice recognition software. It may contain grammatical, syntax or spelling errors. Electronically signed by: Chichi Langston DO 03/31/2021 2:58 PM ECG Data Interpretation: Sinus rhythm with rate of 89. HI and QTc intervals are within normal limits. QRS 80. No ST elevation or ST depression. [facility] Narrative 1316: The patient was evaluated in room C8. A complete history and physical exam was performed Cardiac monitoring: An order was placed for continuous cardiac monitoring. The monitor shows a rate of 90 with sinus rhythm On arrival in the room patient is hypoxic on room air at 84 to 86%. Patient was placed on supplemental oxygen via nasal cannula 3 L which did improve his oxygen saturation. Decadron 6 mg IV push ordered for the patient as he is hypoxic and not vaccinated against COVID-19. 1710: Vital signs stable on supplemental oxygen via nasal cannula. Labs are within normal limits. Patient is COVID-19 positive. Imaging does show bilater al groundglass opacities consistent with Covid pneumonia. Patient will be admitted to the [facility] team given his hypoxia, age and imaging findings, and being COVID-[address] Arguello team will be notified. Impression & Plan Pneumonia due to COVID-19 virus Critical Care Time Critical Care Time: Yes Total Critical Care Time: 64 I have personally spent greater than 64 minutes of critical care time in the direct management of this patient. This includes bedside care, interpretation of diagnostic studies, and testing, discussion with consultants, patient, and family members, and other required patient management activities. This 64 minutes is in excess of all separately billable procedures. Discharge Plan Visit Data Chief Complaint: Shortness of Breath/Dyspnea Stated Complaint: lungs are conjested, hard to breath Discharge Problem: Pneumonia due to COVID-19 virus Patient Disposition: Admitted As Inpatient Forms Stand Alone Forms: My [facility] Prescriptions Prescriptions: No Action multivitamin Tablet 1 tab PO QAM RF: 0 Garlique 400 mg Tablet,Delayed Release (Dr/Ec) 0 mg PO QAM RF: 0 aspirin [Aspir-Low] 81 mg Tablet,Delayed Release (Dr/Ec) 81 mg PO QAM RF: 0 cyanocobalamin (vitamin B-12) [Vitamin B-12] 500 mcg Tablet 0 mcg PO QAM RF: 0 metformin 1,000 mg Tablet 500 mg PO BID RF: 0 lisinopril 10 mg Tablet 10 mg PO QAM RF: 0 Vicks NyQuil 7.5-60-30-1,000 mg/30 mL Liquid 30 ml PO QID PRN (Reason: Cold Symptoms) RF: 0 prednisone 20 mg tablet 20 mg PO QAM RF: 0 Referrals Referrals: Nico Arango PA-C [Primary Care Provider] -
[2021-03-31] MEDS ORDERED: SODIUM CHLORIDE 0.9% 10ML FLUSH IV SCH (21:00)
[2021-03-31] MEDS ORDERED: ACETAMINOPHEN 325 MG TAB PO PRN (21:22)
[2021-03-31] MEDS ORDERED: ONDANSETRON INJ 2 MG/ML 2 ML VIAL IV PRN (21:22)
[2021-03-31] MEDS ORDERED: IPRATROPIUM BROMIDE/ALBUTEROL respimat INH INH SCH (21:22)
[2021-03-31] MEDS ORDERED: NSS + 20MEQ KCL 20 MEQ/1,000 ML BAG IV SCH (21:45)
[2021-03-31] MEDS: SODIUM CHLORIDE 0.9% 10ML FLUSH IV SCH (21:47)
[2021-03-31] MEDS: ENOXAPARIN 80 MG/0.8 ML SYR SQ SCH (21:49)
[2021-03-31] MEDS: guaiFENesin 600 MG TABCR PO SCH (21:49)
[2021-03-31] MEDS: INSULIN ASPART 100 UNITS/ML 3 ML PEN SC SCH (22:22)
[2021-03-31] MEDS: INSULIN GLARGINE SOLOSTAR 100 UNITS/ML 3 ML PEN SC SCH (22:23)
--- NOTE | 2021-03-31 23:00 | Electrocardiogram Report ---
Test Reason : Blood Pressure : / mmHG Vent. Rate : 089 BPM Atrial Rate : 089 BPM P-R Int : 148 ms QRS Dur : 080 ms QT Int : 370 ms P-R-T Axes : 019 020 -17 degrees QTc Int : 450 ms Normal sinus rhythm Nonspecific T wave abnormality Abnormal ECG No previous ECGs available Confirmed by Tigre Alegre ([id number]) on 03/31/2021 11:00:31 PM Referred By: REFERRED SELF Confirmed By:Tigre Alegre
[2021-04-01] MEDS ORDERED: IPRATROPIUM BROMIDE HFA INHALER INH SCH (07:00)
[2021-04-01] MEDS ORDERED: ALBUTEROL HFA 8 GM INHALER INH SCH (07:00)
[2021-04-01 07:54] LABS: BUN Creatinine Ratio 29.2 (10-20); C Reactive Protein 16.6 mg/dl (0-0.29); Calcium 8.5 mg/dl (8.5-10.1); Creatinine Clr Calc Pharmacy 220.7 ml/min; Est GFR (African American) 149.4 ml/min; Est GFR (Non-African American) 128.9 ml/min; Potassium 4.2 mmol/L (3.5-5.1)
[2021-04-01 07:57] LABS: D Dimer 450 ug/L FEU (0-500)
[2021-04-01] MEDS ORDERED: ALBUTEROL HFA 8 GM INHALER INH PRN (08:29)
[2021-04-01] MEDS ORDERED: IPRATROPIUM BROMIDE HFA INHALER INH PRN (08:29)
[2021-04-01] MEDS: CYANOCOBALAMIN 500 MCG TABLET (VITAMIN B-12) PO SCH (08:32)
[2021-04-01] MEDS: ASPIRIN 81 MG ECTAB PO SCH (08:32)
[2021-04-01] MEDS: MULTIVITAMIN TAB PO SCH (08:32)
[2021-04-01] MEDS: lisinopril 10 MG TAB PO SCH (08:32)
[2021-04-01] MEDS: guaiFENesin 600 MG TABCR PO SCH ×2 (08:33→21:03)
[2021-04-01] MEDS: ENOXAPARIN 80 MG/0.8 ML SYR SQ SCH ×2 (08:33→21:02)
[2021-04-01] MEDS: INSULIN GLARGINE SOLOSTAR 100 UNITS/ML 3 ML PEN SC SCH ×2 (08:33→21:51)
[2021-04-01] MEDS: INSULIN ASPART 100 UNITS/ML 3 ML PEN SC SCH ×4 (08:33→21:50)
[2021-04-01] MEDS: dexAMETHasone 6 MG in SYRINGE 0 ML IV SCH (08:36)
[2021-04-01 09:00] LABS: Estimated Average Glucose 298 mg/dl
[2021-04-01] MEDS ORDERED: SODIUM CHLORIDE 0.9% 10ML FLUSH IV SCH (09:00)
--- NOTE | 2021-04-01 11:21 | Hospitalist Progress Note ---
Date of Service April 01, 2021 Assessment & Plan (1) Pneumonia due to COVID-19 virus: Plan: Extensive, severe b/l COVID-19 pneumonia. Worsening respiratory symptoms in the 48 hours prior to admission day 6 of illness dexamethasone 6mg IV daily, day 2 Remdesivir IV daily, day 2 mucinex, combivent, flutter valve, incentive spirometry was up to 12L wall high flow this morning, belly breathing gave him Lasix 40mg IV x 1, great response, titrated down to 8L CRP is 16, appreciate pulmonology consult, no need for Tocilizumab since oxygen requirements improving Lovenox BID for prophylaxis (2) Acute respiratory failure with hypoxia: Plan: 2nd to COVID-19 pneumonia. was up to 12L high flow this morning great response to Lasix 40mg IV today, down to 8L consider repeating Lasix tomorrow AM (3) Essential hypertension: Plan: Cont IJEOMA. BP stable (4) Type 2 diabetes mellitus: Plan: hyperglycemic in 300s, due to dexamethasone continue Lantus 10 BID tightened correction factor to 10, carb ratio 5 will give NPH 35 units with dexamethasone in the AM (5) Morbid obesity: Plan: BMI 47 (6) Snoring: Plan: Patient with likely severe YEIMI based on history. Low threshold for BIPAP during this stay with any clinical worsening. Would benefit from sleep study down the line. (7) Back pain: Plan: Seen in ER for such about 1 week ago. Steroids for #1 should help this issue. (8) DVT prophylaxis: Plan: lovenox 0.5mg/kg BID due to high risk of VTE while hospitalized w/ COVID-19 Plan: 1 liter of isotonic fluids overnight then saline lock. patient with poor oral intake over last 3-4 days. patient at high risk of clinical worsening while hospitalized. Admission and Anticipated Discharge Date Admission Date: March 31, 2021 Subjective patient says he is feeling better this morning compared to how he felt last night when he came in said he has been sick since late last week, progressively worse he has been eating well and drinking well the whole time had a loose stool this morning, no diarrhea prior to that no fever/chills today d/w RN, he had a bad coughing spell this morning after breathing treatment, desaturated to 80's she had to increase him from 5L to 12L high flow (wall) reviewed labs, CRP is 16, CXR shows diffuse bilateral infiltrates he is not vaccinated will consult Dr. Andujar to evaluate for Tocilizumab due to worsening oxygen sats and high CRP Review of Systems Review of Systems: All systems reviewed & are unremarkable except as noted in Subjective Constitutional: + fatigue; no fever and no weakness Respiratory: + cough, + dyspnea and + dyspnea on exertion Cardiovascular: no chest pain and no edema Gastrointestinal: + diarrhea/loose stools; no abdominal pain, no nausea, no vomiting and no constipation Physical Exam Constitutional: well developed, well nourished, + ill appearing, + morbidly obese and comfortable Neck: trachea midline, no thyromegaly Respiratory: + labored breathing, + uses accessory muscles (belly breathing), + cough and + tachypneic Auscultation: + diminished lung sounds; no crackles, no rales and no wheezes Cardiovascular: RRR, no murmur, no edema Gastrointestinal (Abdomen): normal bowel sounds, soft, nontender, no h epatosplenomegaly Musculoskeletal: no cyanosis or clubbing, extremities motor strength 5/5 Skin: no rashes, warm and dry Neurologic: normal touch/pain/proprioception, CN's II-XI intact bilaterally, moves all extremities and awake; no focal motor deficits Psychiatric: A+Ox3, euthymic affect Results & Data Results & Data ([facility]) Vital Signs (Past 12 Hours) Vital Signs Temp Pulse Resp BP Pulse Ox 04/01/21 08:44 22 92 04/01/21 08:36 24 88 L 04/01/21 08:32 26 H 87 L 04/01/21 08:28 26 H 87 L 04/01/21 08:25 26 H 82 L 04/01/21 08:06 76 18 94 04/01/21 07:26 36.7 C 84 18 141/96 H 93 04/01/21 02:11 36.8 C 81 18 138/84 94 04/01/21 00:11 36.8 C 80 18 139/87 95 Laboratory Results Laboratory Results - last 24 hr 03/31/21 03/31/21 03/31/21 13:15 13:45 13:45 WBC 6.80 RBC 4.92 Hgb 15.5 Hct 45.2 MCV 91.9 MCH 31.5 MCHC 34.3 RDW Std Deviation 42.6 RDW Coeff of Glendy 12.7 Plt Count 248 MPV 9.9 Immature Gran % (Auto) 0.1 Neut % (Auto) 79.3 Lymph % (Auto) 17.2 Bailey % (Auto) 3.4 Eos % (Auto) 0.0 Baso % (Auto) 0.0 Neut # (Auto) 5.39 Lymph # (Auto) 1.17 L Bailey # (Auto) 0.23 Eos # (Auto) 0.00 Baso # (Auto) 0.00 Immature Gran # (Auto) 0.01 PT 9.9 INR 1.0 APTT 25.2 PTT Ratio 1.0 D-Dimer VBG pH VBG pCO2 VBG pO2 VBG HCO3 VBG O2 Saturation VBG Base Excess Barometric Pressure Sodium 138 Potassium 3.7 Chloride 103 Carbon Dioxide 29 Anion Gap 6.0 BUN 11 Creatinine 0.73 Est Cr Clr Drug Dosing 159.1 Est GFR ( Amer) 128.9 Est GFR (Non-Af Amer) 111.2 BUN/Creatinine Ratio 14.9 Glucose 225 H POC Glucose Estimat Average Glucose Hemoglobin A1c Lactate Calcium 8.5 Magnesium 2.1 Total Bilirubin 0.9 AST 22 ALT 23 Alkaline Phosphatase 67 Troponin I < 0.015 C-Reactive Protein Total Protein 7.3 Albumin 2.8 L Globulin 4.5 H Albumin/Globulin Ratio 0.6 L Procalcitonin COVID-19 Eval Order SARS-CoV-2 (PCR) 03/31/21 03/31/21 03/31/21 13:45 14:24 14:24 WBC RBC Hgb Hct MCV MCH MCHC RDW Std Deviation RDW Coeff of Glendy Plt Count MPV Immature Gran % (Auto) Neut % (Auto) Lymph % (Auto) Bailey % (Auto) Eos % (Auto) Baso % (Auto) Neut # (Auto) Lymph # (Auto) Bailey # (Auto) Eos # (Auto) Baso # (Auto) Immature Gran # (Auto) PT INR APTT PTT Ratio D-Dimer VBG pH 7.37 VBG pCO2 53 H VBG pO2 25 VBG HCO3 30 VBG O2 Saturation < 60.0 VBG Base Excess 3.0 Barometric Pressure 735.4 Sodium Potassium Chloride Carbon Dioxide Anion Gap BUN Creatinine Est Cr Clr Drug Dosing Est GFR ( Amer) Est GFR (Non-Af Amer) BUN/Creatinine Ratio Glucose POC Glucose Estimat Average Glucose Hemoglobin A1c Lactate 1.6 Calcium Magnesium Total Bilirubin AST ALT Alkaline Phosphatase Troponin I C-Reactive Protein Total Protein Albumin Globulin Albumin/Globulin Ratio Procalcitonin < 0.05 COVID-19 Eval Order SARS-CoV-2 (PCR) 03/31/21 03/31/21 03/31/21 15:00 15:00 21:39 WBC RBC Hgb Hct MCV MCH MCHC RDW Std Deviation RDW Coeff of Glendy Plt Count MPV Immature Gran % (Auto) Neut % (Auto) Lymph % (Auto) Bailey % (Auto) Eos % (Auto) Baso % (Auto) Neut # (Auto) Lymph # (Auto) Bailey # (Auto) Eos # (Auto) Baso # (Auto) Immature Gran # (Auto) PT INR APTT PTT Ratio D-Dimer VBG pH VBG pCO2 VBG pO2 VBG HCO3 VBG O2 Saturation VBG Base Excess Barometric Pressure Sodium Potassium Chloride Carbon Dioxide Anion Gap BUN Creatinine Est Cr Clr Drug Dosing Est GFR ( Amer) Est GFR (Non-Af Amer) BUN/Creatinine Ratio Glucose POC Glucose 257 H Estimat Average Glucose Hemoglobin A1c Lactate Calcium Magnesium Total Bilirubin AST ALT Alkaline Phosphatase Troponin I C-Reactive Protein Total Protein Albumin Globulin Albumin/Globulin Ratio Procalcitonin COVID-19 Eval Order Covid19 at [facility] SARS-CoV-2 (PCR) POSITIVE A* 04/01/21 04/01/21 04/01/21 06:59 06:59 06:59 WBC RBC Hgb Hct MCV MCH MCHC RDW Std Deviation RDW Coeff of Glendy Plt Count MPV Immature Gran % (Auto) Neut % (Auto) Lymph % (Auto) Bailey % (Auto) Eos % (Auto) Baso % (Auto) Neut # (Auto) Lymph # (Auto) Bailey # (Auto) Eos # (Auto) Baso # (Auto) Immature Gran # (Auto) PT INR APTT PTT Ratio D-Dimer 450 VBG pH VBG pCO2 VBG pO2 VBG HCO3 VBG O2 Saturation VBG Base Excess Barometric Pressure Sodium 138 Potassium 4.2 Chloride 107 Carbon Dioxide 26 Anion Gap 5.0 BUN 15 Creatinine 0.51 L Est Cr Clr Drug Dosing 220.7 Est GFR ( Amer) 149.4 Est GFR (Non-Af Amer) 128.9 BUN/Creatinine Ratio 29.2 H Glucose 206 H POC Glucose Estimat Average Glucose 298 Hemoglobin A1c 12.0 H Lactate Calcium 8.5 Magnesium Total Bilirubin AST ALT Alkaline Phosphatase Troponin I C-Reactive Protein 16.60 H Total Protein Albumin Globulin Albumin/Globulin Ratio Procalcitonin COVID-19 Eval Order SARS-CoV-2 (PCR) 04/01/21 07:23 WBC RBC Hgb Hct MCV MCH MCHC RDW Std Deviation RDW Coeff of Glendy Plt Count MPV Immature Gran % (Auto) Neut % (Auto) Lymph % (Auto) Bailey % (Auto) Eos % (Auto) Baso % (Auto) Neut # (Auto) Lymph # (Auto) Bailey # (Auto) Eos # (Auto) Baso # (Auto) Immature Gran # (Auto) PT INR APTT PTT Ratio D-Dimer VBG pH VBG pCO2 VBG pO2 VBG HCO3 VBG O2 Saturation VBG Base Excess Barometric Pressure Sodium Potassium Chloride Carbon Dioxide Anion Gap BUN Creatinine Est Cr Clr Drug Dosing Est GFR ( Amer) Est GFR (Non-Af Amer) BUN/Creatinine Ratio Glucose POC Glucose 204 H Estimat Average Glucose Hemoglobin A1c Lactate Calcium Magnesium Total Bilirubin AST ALT Alkaline Phosphatase Troponin I C-Reactive Protein Total Protein Albumin Globulin Albumin/Globulin Ratio Procalcitonin COVID-19 Eval Order SARS-CoV-2 (PCR) Medications Administered Current Inpatient Medications Acetaminophen (Acetaminophen 325 Mg Tab) 650 mg PO Q4H PRN PRN Reason: Pain or Fever Stop: 04/30/21 21:21 Albuterol (Albuterol Hfa 8 Gm Inhaler) 1 puffs INH Q4R PRN PRN Reason: Shortness Of Breath Or Wheezing Stop: 05/01/21 08:27 Aspirin (Aspirin 81 Mg Ectab) 81 mg PO QAM [facility] Stop: 05/01/21 08:59 Last Admin: 04/01/21 08:32 Dose: 81 mg Documented by: Cyanocobalamin (Cyanocobalamin 500 Mcg Tablet (Vitamin B-12)) 1,000 mcg PO QAM [facility] Stop: 05/01/21 08:59 Last Admin: 04/01/21 08:32 Dose: 1,000 mcg Documented by: Enoxaparin Sodium (Enoxaparin 80 Mg/0.8 Ml Syr) 65 mg SQ Q12 [facility] Stop: 04/30/21 21:59 Last Admin: 04/01/21 08:33 Dose: 65 mg Documented by: Guaifenesin (Guaifenesin 600 Mg Tabcr) 1,200 mg PO Q12 [facility] Stop: 04/30/21 21:59 Last Admin: 04/01/21 08:33 Dose: 1,200 mg Documented by: Dexamethasone 6 mg/ Syringe 1.5 mls @ 1 mls/min IV Q24H [facility] Stop: 04/10/21 08:59 Last Admin: 04/01/21 08:36 Dose: 1 mls/min Documented by: Remdesivir 100 mg/ Sodium (Chloride) 250 mls @ 250 mls/hr IV Q24H [facility]; Protocol Stop: 04/04/21 20:59 Furosemide 40 mg/ Syringe 4 mls @ 4 mls/min IV 1130 ONE Stop: 04/01/21 11:31 Insulin Aspart (Insulin Aspart 100 Units/Ml 3 Ml Pen) 0 units SC ACHS [facility] Stop: 04/30/21 21:59 Last Admin: 04/01/21 08:33 Dose: 8 units Documented by: Insulin Glargine (Insulin Glargine Solostar 100 Units/Ml 3 Ml Pen) 10 units SC BID [facility] Stop: 04/30/21 21:59 Last Admin: 04/01/21 08:33 Dose: 10 units Documented by: Ipratropium [place] (Ipratropium [place] Hfa Inhaler) 1 puffs INH Q4R PRN PRN Reason: Shortness Of Breath Or Wheezing Stop: 05/01/21 08:28 Lisinopril ([facility]op[facility] 10 Mg Tab) [facility] [place]: 05/01/21 08:59 Last Admin: 04/01/21 08:32 Dose: 10 mg Documented by: Multivitamins (Multivitamin Tab) 1 tab PO QAM [facility] Stop: 05/01/21 08:59 Last Admin: 04/01/21 08:32 Dose: 1 tab Documented by: Ondansetron HCl (Ondansetron Inj 2 Mg/Ml 2 Ml Vial) 4 mg IV Q6H PRN PRN Reason: Nausea Stop: 04/30/21 21:21 Sodium Chloride (Sodium Chloride 0.9% 10ml Flush) 30 ml IV DAILY@2100 [facility] Stop: 04/04/21 21:01 Last Admin: 03/31/21 21:47 Dose: 30 ml Documented by: PG Care Time/CCT Total # of Minutes Spent Total Time Spent: 33 Total Time Spent with Patient: Total time spent is greater than 50% in coord ination of care (as documented) at patient's floor/unit and/or counseling patient: Coding Level of Care Code 22338 Subseq Hosp Care Lvl 3 Diagnoses Pneumonia due to COVID-19 virus U07.1; J12.82 Acute respiratory failure with hypoxia J96.01 Essential hypertension I10 Type 2 diabetes mellitus E11.9 Morbid obesity E66.01 Snoring R06.83 Back pain M54.5 Back pain laterality: left Back pain location: low back pain Chronicity: acute Sciatica presence: unspecified whether sciatica present DVT prophylaxis Z29.9 (1) Back pain Back pain laterality: left Back pain location: low back pain Chronicity: acute Sciatica presence: unspecified whether sciatica present Qualified Code(s): M54.5 - Low back pain
[2021-04-01] MEDS ORDERED: FUROSEMIDE 40 MG in SYRINGE 0 ML IV ONE (11:30)
--- NOTE | 2021-04-01 19:15 | Pulmonary Consultation ---
Date of Consultation April 01, 2021 Assessment & Plan (1) Acute respiratory failure with hypoxia: CT chest 03/31/2021 personally reviewed: Diffuse patchy opacities appreciated bilaterally upper and lower lobes. Minimal hilar lymphadenopathy Cardiomegaly, no pleural effusion --Acute hypoxic respiratory failure Secondary to multilobar COVID-19 pneumonia COVID-19 PCR positive 03/31/2021 CRP: 16.6, BNP 56 Continue with O2 supplementation to keep oxygen saturation between 90-92% Continue with remdesivir and dexamethasone Monitor LFTs while on remdesivir Awake proning will be beneficial --Morbid obesity Snoring at night High probability of sleep apnea Give BiPAP 12/8 nightly and as needed shortness of breath Plan: Patient was saturating 96% on 12 L nasal cannula I was able to go down to 8 L nasal cannula and he was still maintaining saturation 92% He is not in any respiratory distress. No indication for Tocilizumab currently. I am going to give him BiPAP 12/8 nightly and as needed shortness of breath Awake proning will be helpful Continue with flutter valve as well as incentive spirometry Continue with guaifenesin. Pulmonary continue to follow Case discussed with RN as well as Dr. Meek Please note the above document was generated using voice recognition software. It may contain grammatical, syntax or spelling errors.Any formal questions or concerns about the content, text or information contained within the body of this dictation should be directly addressed to the provider for clarification. (2) Pneumonia due to COVID-19 virus: (3) Snoring: History of Present Illness Attending Physician: Joaquin Meek, DO History of Present Illness 45-year-old male with past medical history of diabetes, hypertension presented to hospital with complaints of shortness of breath and cough going on since 3-4 days. In the ER patient was found to be Covid positive Pulmonary consulted because of increasing oxygen demand At the time of examination patient states that he is feeling better compared to when he came to the hospital. He has been using incentive spirometry going up to 2 L. Has been using flutter valve as well. Bringing up phlegm. Denies any hemoptysis. No chest pain, no headache, no blurry vision. Urinating well. Denies any diarrhea. Patient has kids and have also tested positive at home. Patient did not get vaccinated for COVID-19. Social history: Non-smoker, no illicit drug use, no alcohol use. Pets: Has a dog at home. No birds or poultry nearby Allergies Allergy/AdvReac Type Severity Reaction Status Date / Time No Known Allergies Allergy Unverified 03/31/21 16:35 Home Medications Medication Instructions Recorded Confirmed Type aspirin 81 mg tablet,delayed 81 mg PO QAM 03/24/21 03/31/21 History release cyanocobalamin (vitamin B-12) 500 0 mcg PO QAM 03/24/21 03/31/21 History mcg tablet (Vitamin B-12) garlic 400 mg tablet,delayed 0 mg PO QAM 03/24/21 03/31/21 History release lisinopril 10 mg tablet 10 mg PO QAM 03/24/21 03/31/21 History metformin 1,000 mg tablet 500 mg PO BID 03/24/21 03/31/21 History multivitamin 1 tab PO QAM 03/24/21 03/31/21 History [id number]-acetaminophen 7.5 30 ml PO QID PRN 03/31/21 03/31/21 History mg-60 [id number]/30mL oral liqd prednisone 20 mg tablet 20 mg PO QAM 03/31/21 03/31/21 History Patient History Medical History (Updated 04/01/21 @ 01:26 by Vishnu Arriaga) Essential hypertension Morbid obesity Type 2 diabetes mellitus Surgical History (Updated 03/31/21 @ 19:00 by Robert Connors) No pertinent past surgical history Family History (Updated 03/31/21 @ 18:18 by Vishnu Arriaga) Father Diabetes ESRD (end stage renal disease) on dialysis Social History (Updated 03/31/21 @ 18:18 by Vishnu Arriaga) Smoking Status: Former smoker Tobacco Type: Cigarettes Second Hand Exposure: No; Do You Dip or Chew Tobacco: No; Tobacco Cessation Education Requested by Patient: No Hx Alcohol Use: No Hx Substance Use: No Preferred Language: Kinyarwanda Communication Ability: Effective Entry Level Installation Technician Required: No Beliefs That Will Affect Care: Taoist Taoist Beliefs: anabaptist marital status: Legally Current Living Situation: Family Current Living Situation Comment: lives with ex- and her 2 children current occupational status: employed current occupation: [employer] How many Children do You have: 1 How many Children do You have Comment: 24yo adult son Other Information That Helps Us Care for You: No Feels Safe at Home: Yes Safety Concerns: Feels Safe At This Time Assistive Devices: Oxygen - Continuous Review of Systems Review of Systems: All systems reviewed & are unremarkable except as noted in HPI & below Physical Exam Physical Exam: Constitutional: No acute distress HEENT: EOMI, PERRLA Respiratory system: Decreased air entry bilaterally, no wheeze, no, positive crackles bilaterally CVS: S1-S2 positive, no murmurs or gallops Abdomen: Soft, nontender, nondistended, positive bowel sounds x4, obese Extremities: +2 pulses bilaterally radialis/ dorsalis pedis, no cyanosis, no edema Neuro: Awake alert oriented x3 Psych: Normal mood and affect G/U: No [place] Skin: no rashes, warm and dry Lymphatic: no cervical or axillary lymphadenopathy Results & Data Results & Data ([facility]) Vital Signs (Past 12 Hours) Vital Signs Temp Pulse Pulse Resp BP Pulse Ox 04/01/21 15:57 36.8 C 73 18 133/78 93 04/01/21 15:00 80 04/01/21 11:34 36.6 C 75 20 157/88 H 95 04/01/21 08:44 22 92 04/01/21 08:36 24 88 L 04/01/21 08:32 26 H 87 L 04/01/21 08:28 26 H 87 L 04/01/21 08:25 26 H 82 L 04/01/21 08:06 76 18 94 04/01/21 07:26 36.7 C 84 18 141/96 H 93 03/31/21 13:45 04/01/21 06:59 PG Care Time/CCT Total # of Minutes Spent Total Time Spent with Patient: Total time spent is greater than 50% in coordination of care (as documented) at patient's floor/unit and/or counseling patient: Coding Level of Care Code 63563 Inpt Consult Level 4 Diagnoses Acute respiratory failure with hypoxia J96.01 Pneumonia due to COVID-19 virus U07.1; J12.82 Snoring R06.83
[2021-04-01] MEDS: REMDESIVIR 100 MG in SODIUM CHLORIDE 0.9% 230 ML IV SCH (21:01)
[2021-04-01] MEDS: SODIUM CHLORIDE 0.9% 10ML FLUSH IV SCH (22:17)
[2021-04-01] MEDS ORDERED: COUGH DROP (SUGAR FREE) LOZ 24 LOZ/1 BOX BUCCAL ONE (23:25)
[2021-04-02] MEDS ORDERED: COUGH DROP (SUGAR FREE) LOZ 24 LOZ/1 BOX BUCCAL PRN (00:02)
[2021-04-02 05:44] LABS: Hematocrit (blood only) 42.2 % (42-52); Hemoglobin 14.6 g/dL (14.0-18.0); Mean Corpuscular Hemoglobin 31.5 pg (25-34); Mean Corpuscular Hgb Conc 34.6 g/dL (32-36); Mean Corpuscular Volume 90.9 fL (80-100); Platelet Count 295 K/uL (130-400); RDW Coefficient of Variation 12.5 % (11.5-14.5); RDW Standard Deviation 41.7 fL (36.4-46.3); Red Blood Count 4.64 M/uL (4.7-6.1); White Blood Count 7.72 K/uL (4.8-10.8)
[2021-04-02 06:13] LABS: BUN Creatinine Ratio 34.5 (10-20); C Reactive Protein 8.55 mg/dl (0-0.29); Calcium 8.9 mg/dl (8.5-10.1); Creatinine Clr Calc Pharmacy 178.6 ml/min; Est GFR (Non-African American) 118.2 ml/min; Potassium 4.2 mmol/L (3.5-5.1)
[2021-04-02] MEDS ORDERED: FUROSEMIDE 40 MG in SYRINGE 0 ML IV ONE (08:00)
[2021-04-02] MEDS: INSULIN ASPART 100 UNITS/ML 3 ML PEN SC SCH ×4 (08:32→20:56)
[2021-04-02] MEDS: guaiFENesin 600 MG TABCR PO SCH ×2 (08:37→20:29)
[2021-04-02] MEDS: ASPIRIN 81 MG ECTAB PO SCH (08:38)
[2021-04-02] MEDS: lisinopril 10 MG TAB PO SCH (08:38)
[2021-04-02] MEDS: CYANOCOBALAMIN 500 MCG TABLET (VITAMIN B-12) PO SCH (08:38)
[2021-04-02] MEDS: dexAMETHasone 6 MG in SYRINGE 0 ML IV SCH (08:38)
[2021-04-02] MEDS: MULTIVITAMIN TAB PO SCH (08:39)
[2021-04-02] MEDS: ENOXAPARIN 80 MG/0.8 ML SYR SQ SCH ×2 (08:39→20:29)
[2021-04-02] MEDS ORDERED: INSULIN HUMAN NPH SC SCH (09:00)
[2021-04-02] MEDS: INSULIN GLARGINE SOLOSTAR 100 UNITS/ML 3 ML PEN SC SCH ×2 (09:38→20:57)
--- NOTE | 2021-04-02 09:56 | Pulmonology Progress Note ---
Date of Service April 02, 2021 Assessment & Plan (1) Acute respiratory failure with hypoxia: Plan: CT chest 03/31/2021 personally reviewed: Diffuse patchy opacities appreciated bilaterally upper and lower lobes. Minimal hilar lymphadenopathy Cardiomegaly, no pleural effusion --Acute hypoxic respiratory failure Secondary to multilobar COVID-19 pneumonia COVID-19 PCR positive 03/31/2021 CRP: 16.6, BNP 56 Continue with O2 supplementation to keep oxygen saturation between 90-92% Continue with remdesivir and dexamethasone Monitor LFTs while on remdesivir Awake proning will be beneficial --Morbid obesity Snoring at night High probability of sleep apnea Give BiPAP 08/02 nightly and as needed shortness of breath Plan: In/out: +2.2 L, urine output 203 Patient did get a dose of Lasix today. Would recommend to start keeping him euvolemic now. Can titrate down oxygen to keep O2 saturation greater than 90% Awake proning will be helpful Continue with flutter valve as well as incentive spirometry Continue with guaifenesin. Case discussed with RN as well as Dr. Meek Pulmonary will follow peripherally. Call directly with any questions. Please note the above document was generated using voice recognition software. It may contain grammatical, syntax or spelling errors.Any formal questions or concerns about the content, text or information contained within the body of this dictation should be directly addressed to the provider for clarification. (2) Pneumonia due to COVID-19 virus: (3) Snoring: Admission and Anticipated Discharge Date Admission Date: March 31, 2021 Subjective Patient was seen from the glass window of the door. He was not in acute distress. He was on the phone. Saturation 94-96% on 8 L nasal cannula Review of Systems Review of Systems: Other Physical Exam Physical Exam: Patient not examined due to coronavirus restrictions and attempts to minimize exposure to staff and consider PPE. Please refer to the hospitalist exam for complete details. Results & Data Results & Data ([facility]) Vital Signs (Past 12 Hours) Vital Signs Temp Pulse Pulse Resp BP Pulse Ox 04/02/21 07:32 36.6 C 68 18 117/83 91 04/02/21 07:00 54 L 04/02/21 04:00 36.6 C 66 18 122/79 94 04/01/21 22:17 36.6 C 87 18 128/85 94 04/02/21 05:14 04/02/21 05:14 PG Care Time/CCT Total # of Minutes Spent Total Time Spent with Patient: Total time spent is greater than 50% in store coordinator rdination of care (as documented) at patient's floor/unit and/or counseling patient: Coding Level of Care Code 41779 Subseq Hosp Care Lvl 2 Diagnoses Acute respiratory failure with hypoxia J96.01 Pneumonia due to COVID-19 virus U07.1; J12.82 Snoring R06.83
--- NOTE | 2021-04-02 12:09 | Hospitalist Progress Note ---
Date of Service April 02, 2021 Assessment & Plan (1) Pneumonia due to COVID-19 virus: Plan: Extensive, severe b/l COVID-19 pneumonia. Worsening respiratory symptoms in the 48 hours prior to admission he was about 5 days into illness at time of admission dexamethasone 6mg IV daily, day 3 Remdesivir IV daily, day 3 mucinex, combivent, flutter valve, incentive spirometry was up to 12L wall high flow morning of 04/01, belly breathing great response to Lasix 40mg IV x 1, titrated down to 8L doing even better today, 04/02, down to 4L, saturations 94%, breathing easier, no accessory muscle use at all gave repeat dose of Lasix 40mg IV this morning with another good response, urinating all morning CRP was 16, appreciate pulmonology consult, no need for Tocilizumab since oxygen requirements improving CRP down to 8 today Plan: continue to try to titrate down to room air, once on room air observe for 24 hours and if stable send home give Lasix 40mg IV again tomorrow, probably won't need more Lasix CXR tomorrow, check labs Lovenox BID for prophylaxis (2) Acute respiratory failure with hypoxia: Plan: 2nd to COVID-19 pneumonia. great response to steroids, flutter valve and lasix 40mg IV daily down to 4L today from 12L yesterday try to titrate to room air (3) Essential hypertension: Plan: Cont IJEOMA. BP stable (4) Type 2 diabetes mellitus: Plan: hyperglycemic in 300s on 04/01, due to dexamethasone today sugars are better but still in 200's will increase Lantus to 15 BID continue correction factor at 10, carb ratio 5 will increase NPH to 40 units qAM (5) Morbid obesity: Plan: BMI 47 (6) Snoring: Plan: Patient with likely severe YEIMI based on history. Low threshold for BIPAP during this stay with any clinical worsening. Would benefit from sleep study down the line. (7) Back pain: Plan: Seen in ER for such about 1 week ago. Steroids for #1 should help this issue. (8) DVT prophylaxis: Plan: lovenox 0.5mg/kg BID due to high risk of VTE while hospitalized w/ COVID-19 Plan: 1 liter of isotonic fluids overnight then saline lock. patient with poor oral intake over last 3-4 days. patient at high risk of clinical worsening while hospitalized. Admission and Anticipated Discharge Date Admission Date: March 31, 2021 Subjective reviewed labs, Cr stable, CRP down to 8 from 16 breathing well on 4L today responded well to Lasix 40mg IV this morning sugars a little better with adjustments and NPH but still in 200's, will need further adjustment patient feels great, so much better, he says he coughs up a lot of phlegm with the flutter valve he is having some loose stools but he is not concerned, eating well no fever/chills, no chest pain, no nausea, no headache discussed that getting down to room air is pro to discharge, like to watch people for 24 hours on room air once they reach that point to make sure they are stable Review of Systems Review of Systems: All systems reviewed & are unremarkable except as noted in Subjective Respiratory: + cough, + dyspnea, + dyspnea on exertion and + sputum production Cardiovascular: no chest pain and no edema Gastrointestinal: + diarrhea/loose stools; no abdominal pain, no nausea and no vomiting Physical Exam Constitutional: well developed, well nourished, + ill appearing, + morbidly obese and comfortable Neck: trachea midline, no thyromegaly Respiratory: + cough and + tachypneic; no respiratory distress, no labored breathing and does not use accessory muscles Auscultation: + diminished lung sounds; no crackles, no rales and no wheezes Cardiovascular: RRR, no murmur, no edema Gastrointestinal (Abdomen): normal bowel sounds, soft, nontender, no hepatosplenomegaly Musculoskeletal: no cyanosis or clubbing, extremities motor strength 5/5 Skin: no rashes, warm and dry Neurologic: normal touch/pain/proprioception, CN's II-XI intact bilaterally, moves all extremities and awake; no focal motor deficits Psychiatric: A+Ox3, euthymic affect Results & Data Results & Data ([facility]) Vital Signs (Past 12 Hours) Vital Signs Temp Pulse Pulse Resp BP Pulse Ox 04/02/21 07:32 36.6 C 68 18 117/83 91 04/02/21 07:00 54 L 04/02/21 04:00 36.6 C 66 18 122/79 94 Laboratory Results Laboratory Results - last 24 hr 04/01/21 04/01/21 04/01/21 06:59 16:26 16:27 WBC RBC Hgb Hct MCV MCH MCHC RDW Std Deviation RDW Coeff of Glendy Plt Count MPV Sodium Potassium Chloride Carbon Dioxide Anion Gap BUN Creatinine Est Cr Clr Drug Dosing Est GFR ( Amer) Est GFR (Non-Af Amer) BUN/Creatinine Ratio Glucose POC Glucose 304 H* 308 H* Calcium AST ALT C-Reactive Protein NT-Pro-B Natriuret Pep 56 04/01/21 04/02/21 04/02/21 20:23 05:14 05:14 WBC 7.72 RBC 4.64 L Hgb 14.6 Hct 42.2 MCV 90.9 MCH 31.5 MCHC 34.6 RDW Std Deviation 41.7 RDW Coeff of Glendy 12.5 Plt Count 295 MPV 10.0 Sodium 138 Potassium 4.2 Chloride 105 Carbon Dioxide 29 Anion Gap 4.0 BUN 22 H Creatinine 0.63 Est Cr Clr Drug Dosing 178.6 Est GFR ( Amer) 137.0 Est GFR (Non-Af Amer) 118.2 BUN/Creatinine Ratio 34.5 H Glucose 246 H POC Glucose 277 H Calcium 8.9 AST 17 ALT 21 C-Reactive Protein 8.55 H NT-Pro-B Natriuret Pep 04/02/21 04/02/21 07:22 12:01 WBC RBC Hgb Hct MCV MCH MCHC RDW Std Deviation RDW Coeff of Glendy Plt Count MPV Sodium Potassium Chloride Carbon Dioxide Anion Gap BUN Creatinine Est Cr Clr Drug Dosing Est GFR ( Amer) Est GFR (Non-Af Amer) BUN/Creatinine Ratio Glucose POC Glucose 229 H 285 H Calcium AST ALT C-Reactive Protein NT-Pro-B Natriuret Pep Medications Administered Current Inpatient Medications Acetaminophen (Acetaminophen 325 Mg Tab) 650 mg PO Q4H PRN PRN Reason: Pain or Fever Stop: 04/30/21 21:21 Albuterol (Albuterol Hfa 8 Gm Inhaler) 1 puffs INH Q4R PRN PRN Reason: Shortness Of Breath Or Wheezing Stop: 05/01/21 08:27 Aspirin (Aspirin 81 Mg Ectab) 81 mg PO [facility] Stop: 05/01/21 08:59 Last Admin: 04/02/21 08:38 Dose: 81 mg Documented by: Cyanocobalamin (Cyanocobalamin 500 Mcg Tablet (Vitamin B-12)) [facility] Stop: 05/01/21 08:59 Last Admin: 04/02/21 08:38 Dose: 1,000 mcg Documented by: Enoxaparin Sodium (Enoxaparin 80 Mg/0.8 Ml Syr) 65 mg SQ Q12 [facility] Stop: 04/30/21 21:59 Last Admin: 04/02/21 08:39 Dose: 65 mg Documented by: Guaifenesin (Guaifenesin 600 Mg Tabcr) 1,200 mg PO Q12 [facility] Stop: 04/30/21 21:59 Last Admin: 04/02/21 08:37 Dose: 1,200 mg Documented by: Dexamethasone 6 mg/ Syringe 1.5 mls @ 1 mls/min IV Q24H [facility] Stop: 04/10/21 08:59 Last Admin: 04/02/21 08:38 Dose: 1 mls/min Documented by: Remdesivir 100 mg/ Sodium (Chloride) 250 mls @ 250 mls/hr IV Q24H [facility]; Protocol Stop: 04/04/21 20:59 Last Infusion: 04/01/21 22:17 Dose: Infused Documented by: Insulin Aspart (Insulin Aspart 100 Units/Ml 3 Ml Pen) 0 units SC ACHS [facility] Stop: 04/30/21 21:59 Last Admin: 04/02/21 08:32 Dose: 15 units Documented by: Insulin Glargine (Insulin Glargine Solostar 100 Units/Ml 3 Ml Pen) 10 units SC BID [facility] Stop: 04/30/21 21:59 Last Admin: 04/02/21 09:38 Dose: 10 units Documented by: Insulin Human NPH (Insulin Human Nph) [facility] Stop: 05/02/21 08:59 Last Admin: 04/02/21 09:38 Dose: 35 units Documented by: Ipratropium Argenta (Ipratropium Argenta Hfa Inhaler) 1 puffs INH Q4R PRN PRN Reason: Shortness Of Breath Or Wheezing Stop: 05/01/21 08:28 Lisinopril (Lisinopril 10 Mg Tab) 10 mg PO QAM [facility] Stop: 05/01/21 08:59 Last Admin: 04/02/21 08:38 Dose: 10 mg Documented by: Menthol (Cough Drop (Sugar Free) Angel 24 Angel/1 Box) 1 angel BUCCAL Q2H PRN PRN Reason: Cough Stop: 05/02/21 00:01 Multivitamins (Multivitamin Tab) 1 tab PO QAM [facility] Stop: 05/01/21 08:59 Last Admin: 04/02/21 08:39 Dose: 1 tab Documented by: Ondansetron HCl (Ondansetron Inj 2 Mg/Ml 2 Ml Vial) 4 mg IV Q6H PRN PRN Reason: Nausea Stop: 04/30/21 21:21 Sodium Chloride (Sodium Chloride 0.9% 10ml Flush) 30 ml IV DAILY@2100 [facility] Stop: 04/04/21 21:01 Last Admin: 04/01/21 22:17 Dose: 30 ml Documented by: PG Care Time/CCT Total # of Minutes Spent Total Time Spent: 32 Total Time Spent with Patient: Total time spent is greater than 50% in coordination of care (as documented) at patient's floor/unit and/or counseling patient: Coding Level of Care Code 73809 Subseq Hosp Care Lvl 3 (25 - SIGNIFICANT, SEPARATELY IDENTIFIABLE ) Diagnoses Pneumonia due to COVID-19 virus U07.1; J12.82 Acute respiratory failure with hypoxia J96.01 Essential hypertension I10 Type 2 diabetes mellitus E11.9 Morbid obesity E66.01 Snoring R06.83 Back pain M54.5 Back pain laterality: left Back pain location: low back pain Chronicity: acute Sciatica presence: unspecified whether sciatica present DVT prophylaxis Z29.9 (1) Back pain Back pain laterality: left Back pain location: low back pain Chronicity: acute Sciatica presence: unspecified whether sciatica present Qualified Code(s): M54.5 - Low back pain
[2021-04-02] MEDS: REMDESIVIR 100 MG in SODIUM CHLORIDE 0.9% 230 ML IV SCH (20:29)
[2021-04-02] MEDS: SODIUM CHLORIDE 0.9% 10ML FLUSH IV SCH (21:46)
[2021-04-03] MEDS: MULTIVITAMIN TAB PO SCH (08:20)
[2021-04-03] MEDS: CYANOCOBALAMIN 500 MCG TABLET (VITAMIN B-12) PO SCH (08:20)
[2021-04-03] MEDS: INSULIN GLARGINE SOLOSTAR 100 UNITS/ML 3 ML PEN SC SCH ×2 (08:20→20:28)
[2021-04-03] MEDS: INSULIN ASPART 100 UNITS/ML 3 ML PEN SC SCH ×4 (08:20→20:28)
[2021-04-03] MEDS: ENOXAPARIN 80 MG/0.8 ML SYR SQ SCH ×2 (08:20→20:11)
[2021-04-03] MEDS: INSULIN HUMAN NPH SC SCH (08:20)
[2021-04-03] MEDS: guaiFENesin 600 MG TABCR PO SCH ×2 (08:20→20:10)
[2021-04-03] MEDS: ASPIRIN 81 MG ECTAB PO SCH (08:21)
[2021-04-03] MEDS: dexAMETHasone 6 MG in SYRINGE 0 ML IV SCH (08:21)
[2021-04-03] MEDS: lisinopril 10 MG TAB PO SCH (08:21)
[2021-04-03 08:25] LABS: Hematocrit (blood only) 44.5 % (42-52); Hemoglobin 15.2 g/dL (14.0-18.0); Mean Corpuscular Hemoglobin 31.3 pg (25-34); Mean Corpuscular Hgb Conc 34.2 g/dL (32-36); Mean Corpuscular Volume 91.6 fL (80-100); Mean Platelet Volume 9.9 fL (7.4-10.4); Platelet Count 377 K/uL (130-400); RDW Coefficient of Variation 12.3 % (11.5-14.5); RDW Standard Deviation 41.3 fL (36.4-46.3); Red Blood Count 4.86 M/uL (4.7-6.1); White Blood Count 10.69 K/uL (4.8-10.8)
[2021-04-03 08:58] LABS: BUN Creatinine Ratio 37.4 (10-20); Calcium 9.1 mg/dl (8.5-10.1); Creatinine Clr Calc Pharmacy 172.7 ml/min; Est GFR (African American) 135.2 ml/min; Est GFR (Non-African American) 116.7 ml/min; Potassium 4.1 mmol/L (3.5-5.1)
[2021-04-03 08:59] LABS: C Reactive Protein 2.96 mg/dl (0-0.29)
--- NOTE | 2021-04-03 11:24 | XRay Report ---
XR chest 1V portable CLINICAL HISTORY: COVID pneumonia COMPARISON STUDY: March 31, 2021 FINDINGS: No pneumothorax. Interval development of minimal blunting of the right costophrenic angle which could be due to increa sed density of adjacent airspace opacities or small right pleural effusion. Lung volumes are decreased with crowded lung markings. Patchy airspace opacities throughout bilateral lungs are slightly improved since recent prior study. Cardiomediastinal silhouette is prominent which could be due to low inspiratory effort and portable t echnique. Vasculature is obscured.. Osseous structures: Mild degenerative changes of the spine. IMPRESSION: 1. Minimal interval improvement of multifocal pneumonia. 2. Possible small right pleural effusion or minimal silhouetting of the right costophrenic angle due to airspace opacities. Low inspiratory effort limits evaluation. ACT 112: Negative or not required by law. The above report was generated using voice recognition software. It may contain grammatical, syntax o r spelling errors. Electronically signed by: Chichi Langston DO 04/03/2021 11:22 AM
--- NOTE | 2021-04-03 18:24 | Hospitalist Progress Note ---
Date of Service April 03, 2021 Assessment & Plan (1) Pneumonia due to COVID-19 virus: Plan: Extensive, severe b/l COVID-19 pneumonia. Worsening respiratory symptoms in the 48 hours prior to admission he was about 5 days into illness at time of admission dexamethasone 6mg IV daily, day 4 Remdesivir IV daily, day 4 mucinex, combivent, flutter valve, incentive spirometry was up to 12L wall high flow morning of 04/01, belly breathing great response to Lasix 40mg IV daily x2 on 04/01 and 04/02 doing even better today, 04/03, down to 2.5 L, breathing easier, no accessory muscle use at all CRP was 16, appreciate pulmonology consult, no need for Tocilizumab since oxygen requirements improving CRP down to 2.9 today Chest x-ray today is about the same but clinically improved Plan: continue to try to titrate down to room air, once on room air observe for 24 hours and if stable send home No further Lasix needed Continue Lovenox 0.5 mg/KG SQ BID for prophylaxis (2) Acute respiratory failure with hypoxia: Plan: 2nd to COVID-19 pneumonia. great response to steroids, flutter valve and lasix Weaned down to 2.5 L nasal cannula try to titrate to room air (3) Essential hypertension: Plan: Continue lisinopril BP stable (4) Type 2 diabetes mellitus: Plan: hyperglycemic in 300s on 04/01, due to dexamethasone, improving but still some blood sugars in the 200s Continue Lantus to 15 BID Tighten down correction factor to 8, carb ratio 5 Continue NPH to 40 units qAM (5) Morbid obesity: Plan: BMI 47 Discussed weight loss (6) Snoring: Plan: Patient with likely severe YEIMI based on history. Low threshold for BIPAP during this stay with any clinical worsening. Would benefit from sleep study as an outpatient (7) Back pain: Plan: Seen in ER for such about 1 week ago. Steroids for #1 should help this issue. Improved (8) DVT prophylaxis: Plan: lovenox 0.5mg/kg BID due to high risk of VTE while hospitalized w/ COVID-19 Plan: Disposition-continued stay, but improving, may be able to discharge in the next 2 days or so Admission and Anticipated Discharge Date Admission Date: March 31, 2021 Subjective Patient overall feeling much improved and is happy that his oxygen requirement is down to 4 L today. He has been out of bed to the toilet and sitting on the side of the bed and has minimal shortness of breath with this. No cough. No chest pain or abdominal pain. No further diarrhea and is having formed stools. He is eating well. Telemetry with normal sinus rhythm with rates in the 40s to 60s with PVCs. Review of Systems Review of Systems: All systems reviewed & are unremarkable except as noted in HPI & below Physical Exam Constitutional: WD/WN, vitals as above Eyes: + scleral abnormality ENMT: external ear and nose normal, oropharynx normal Neck: trachea midline, no thyromegaly Respiratory: normal respiratory effort, lungs clear to auscultation Cardiovascular: RRR, no murmur, no edema Chest (Breasts): Chest: normal inspection of chest Gastrointestinal (Abdomen): normal bowel sounds, soft, nontender, no hepatosplenomegaly Musculoskeletal: Extremities: extremities normal to inspection; no cyanosis and no clubbing Skin: no rashes, warm and dry Neurologic: moves all extremities and awake; no focal motor deficits Psychiatric: A+Ox3, euthymic affect Lymphatic: no lymphedema Results & Data Results & Data ([facility]) Vital Signs (Past 12 Hours) Vital Signs Temp Pulse Pulse Resp BP Pulse Ox 04/03/21 17:50 18 93 04/03/21 16:25 36.6 C 64 18 126/81 97 04/03/21 15:00 70 04/03/21 12:00 36.6 C 86 20 150/99 H 90 04/03/21 07:30 36.6 C 48 L 61 20 135/84 94 Laboratory Results 04/03/21 04/03/21 04/03/21 Range/Units 16:44 11:58 07:47 WBC 10.69 (4.8-10.8) K/uL RBC 4.86 (4.7-6.1) M/uL Hgb 15.2 (14.0-18.0) g/dL Hct 44.5 (42-52) % MCV 91.6 (80-100) fL MCH 31.3 (25-34) pg MCHC 34.2 (32-36) g/dL RDW Std Deviation 41.3 (36.4-46.3) fL RDW Coeff of Glendy 12.3 (11.5-14.5) % Plt Count 377 (130-400) K/uL MPV 9.9 (7.4-10.4) fL Sodium (136-145) mmol/L Potassium (3.5-5.1) mmol/L Chloride (98-107) mmol/L Carbon Dioxide (21-32) mmol/L Anion Gap (3-11) BUN (7-18) mg/dl Creatinine (0.6-1.4) mg/dl Est Cr Clr Drug Dosing ml/min Est GFR ( Amer) ml/min Est GFR (Non-Af Amer) ml/min BUN/Creatinine Ratio (10-20) Glucose (70-99) mg/dl POC Glucose 125 H 268 H (70-99) mg/dl Calcium (8.5-10.1) mg/dl AST (15-37) U/L ALT (12-78) U/L C-Reactive Protein (0-0.29) mg/dl 04/03/21 04/03/21 04/02/21 Range/Units 07:47 07:21 20:26 WBC (4.8-10.8) K/uL RBC (4.7-6.1) M/uL Hgb (14.0-18.0) g/dL Hct (42-52) % MCV (80-100) fL MCH (25-34) pg MCHC (32-36) g/dL RDW Std Deviation (36.4-46.3) fL RDW Coeff of Glendy (11.5-14.5) % Plt Count (130-400) K/uL MPV (7.4-10.4) fL Sodium 140 (136-145) mmol/L Potassium 4.1 (3.5-5.1) mmol/L Chloride 105 (98-107) mmol/L Carbon Dioxide 32 (21-32) mmol/L Anion Gap 3.0 (3-11) BUN 24 H (7-18) mg/dl Creatinine 0.65 (0.6-1.4) mg/dl Est Cr Clr Drug Dosing 172.7 ml/min Est GFR ( Amer) 135.2 ml/min Est GFR (Non-Af Amer) 116.7 ml/min BUN/Creatinine Ratio 37.4 H (10-20) Glucose 105 H (70-99) mg/dl POC Glucose 123 H 241 H (70-99) mg/dl Calcium 9.1 (8.5-10.1) mg/dl AST 14 L (15-37) U/L ALT 21 (12-78) U/L C-Reactive Protein 2.96 H (0-0.29) mg/dl PG Care Time/CCT Total # of Minutes Spent Total Time Spent with Patient: Total time spent is greater than 50% in coordination of care (as documented) at patient's floor/unit and/or counseling patient: Coding Level of Care Code 54240 Subseq Hosp Care Lvl 3 Diagnoses Pneumonia due to COVID-19 virus U07.1; J12.82 Acute respiratory failure with hypoxia J96.01 Essential hypertension I10 Type 2 diabetes mellitus E11.9 Morbid obesity E66.01 Snoring R06.83 Back pain M54.5 Back pain laterality: left Back pain location: low back pain Chronicity: acute Sciatica presence: unspecified whether sciatica present DVT prophylaxis Z29.9 (1) Back pain Back pain laterality: left Back pain location: low back pain Chronicity: acute Sciatica presence: unspecified whether sciatica present Qualified Code(s): M54.5 - Low back pain
[2021-04-03] MEDS: REMDESIVIR 100 MG in SODIUM CHLORIDE 0.9% 230 ML IV SCH (20:39)
[2021-04-03] MEDS: SODIUM CHLORIDE 0.9% 10ML FLUSH IV SCH (22:11)
[2021-04-04] MEDS: INSULIN ASPART 100 UNITS/ML 3 ML PEN SC SCH ×4 (08:20→21:03)
[2021-04-04] MEDS: ENOXAPARIN 80 MG/0.8 ML SYR SQ SCH ×2 (08:20→20:28)
[2021-04-04] MEDS: guaiFENesin 600 MG TABCR PO SCH ×2 (08:20→20:29)
[2021-04-04] MEDS: CYANOCOBALAMIN 500 MCG TABLET (VITAMIN B-12) PO SCH (08:21)
[2021-04-04] MEDS: ASPIRIN 81 MG ECTAB PO SCH (08:21)
[2021-04-04] MEDS: lisinopril 10 MG TAB PO SCH (08:21)
[2021-04-04] MEDS: MULTIVITAMIN TAB PO SCH (08:22)
[2021-04-04] MEDS: dexAMETHasone 6 MG in SYRINGE 0 ML IV SCH (08:22)
[2021-04-04 08:37] LABS: Alanine Aminotransferase 25 U/L (12-78); Aspartate Aminotransferase 14 U/L (15-37)
[2021-04-04] MEDS: INSULIN GLARGINE SOLOSTAR 100 UNITS/ML 3 ML PEN SC SCH ×2 (09:49→21:04)
[2021-04-04] MEDS: INSULIN HUMAN NPH SC SCH (09:49)
--- NOTE | 2021-04-04 20:18 | Hospitalist Progress Note ---
Date of Service April 04, 2021 Assessment & Plan (1) Pneumonia due to COVID-19 virus: Plan: Extensive, severe b/l COVID-19 pneumonia. Worsening respiratory symptoms in the 48 hours prior to admission he was about 5 days into illness at time of admission dexamethasone 6mg IV daily, day 5--> will plan to discontinue steroids at time of discharge as he is weaned off O2 and having significant hyperglycemia and insulin requirement Remdesivir IV daily, day 5 today continue mucinex, combivent, flutter valve, incentive spirometry was up to 12L wall high flow morning of 04/01, belly breathing great response to Lasix 40mg IV daily x2 on 04/01 and 04/02 Continues to do well and is now weaned to room air at rest plan for 2 step walk test tomorrow and discharge to home possibly with O2 with exertion CRP was 16, appreciate pulmonology consult, no need for Tocilizumab since oxygen requirements improving CRP down to 2.9 Chest x-ray 04/03 is about the same but clinically improved Plan to repeat CXR in 4 weeks to ensure infiltrates resolved Continue Lovenox 0.5 mg/KG SQ BID for prophylaxis (2) Acute respiratory failure with hypoxia: Plan: 2nd to COVID-19 pneumonia. great response to steroids, flutter valve and lasix Weaned off O2 at rest 2 step in AM as above (3) Essential hypertension: Plan: Continue lisinopril BP stable (4) Type 2 diabetes mellitus: Plan: hyperglycemic in 300s on 04/01, due to dexamethasone, improving but still some blood sugars in the 200s Continue Lantus and increase to 20 units BID Tighten down correction factor to 8, carb ratio 4 Increase NPH to 45 units qAM Restart metformin but increase to 1000mg po bid Plan to dc to home on Lantus bid dosing, metformin 1000mg bid, and he will restart Trulicity Needs outpt close follow up HgbA1C severely uncontrolled at 12.0% Plan to dc steroids at time of discharge (5) Morbid obesity: Plan: BMI 47 Discussed weight loss to continue after discharge, has already lost 85lbs in last year (6) Snoring: Plan: Patient with likely severe YEIMI based on history. Low threshold for BIPAP during this stay with any clinical worsening. Would benefit from sleep study as an outpatient (7) Back pain: Plan: Seen in ER for such about 1 week ago. Steroids for #1 should help this issue. Improved (8) DVT prophylaxis: Plan: lovenox 0.5mg/kg BID due to high risk of VTE while hospitalized w/ COVID-19 Plan: Disposition-continued stay, but improving, may be able to discharge tomorrow Admission and Anticipated Discharge Date Admission Date: March 31, 2021 Anticipated date of discharge: 04/05/21 Subjective Pt reports feeling much better. Was weaned off O2 today to room air and POx 95% for most of day. Slept in prone position all night. He has been ambulating around the room and no dyspnea.No diarrhea. Is excited about possibility of discharge tomorrow. He says that at home, his glucose is usually in the mid 200s and HgbA1C was 12% a long time ago and he was placed on a once a week injection he thinks is Trulicity, but does report losing 85 lbs with this. Tele with NSR, rates 50-60s Review of Systems Review of Systems: All systems reviewed & are unremarkable except as noted in HPI & below Physical Exam Constitutional: WD/WN, vitals as above + morbidly obese Eyes: + anicteric sclerae Neck: trachea midline, no thyromegaly Respiratory: normal respiratory effort, lungs clear to auscultation Cardiovascular: RRR, no murmur, no edema Chest (Breasts): Chest: normal inspection of chest Gastrointestinal (Abdomen): normal bowel sounds, soft, nontender, no hepatosplenomegaly Musculoskeletal: Extremities: extremities normal to inspection; no cyanosis and no clubbing Skin: no rashes, warm and dry Neurologic: moves all extremities and awake; no focal motor deficits Psychiatric: A+Ox3, euthymic affect Lymphatic: no lymphedema Results & Data Results & Data ([facility]) Vital Signs (Past 12 Hours) Vital Signs Temp Pulse Pulse Resp BP Pulse Ox 04/04/21 15:25 36.5 C 60 20 121/73 93 04/04/21 15:00 55 L 04/04/21 12:20 93 04/04/21 11:32 36.5 C 58 L 19 116/71 94 04/04/21 09:07 92 Laboratory Results 04/04/21 04/04/21 04/04/21 Range/Units 16:34 11:31 08:13 POC Glucose 204 H 293 H 147 H (70-99) mg/dl AST (15-37) U/L ALT (12-78) U/L 04/04/21 Range/Units 07:15 POC Glucose (70-99) mg/dl AST 14 L (15-37) U/L ALT 25 (12-78) U/L PG Care Time/CCT Total # of Minutes Spent Total Time Spent with Patient: Total time spent is greater than 50% in coordination of care (as documented) at patient's floor/unit and/or counseling patient: Coding Level of Care Code 23315 Subseq Hosp Care Lvl 3 Diagnoses Pneumonia due to COVID-19 virus U07.1; J12.82 Acute respiratory failure with hypoxia J96.01 Essential hypertension I10 Type 2 diabetes mellitus E11.9 Morbid obesity E66.01 Snoring R06.83 Back pain M54.5 Back pain laterality: left Back pain location: low back pain Chronicity: acute Sciatica presence: unspecified whether sciatica present DVT prophylaxis Z29.9 (1) Back pain Back pain laterality: left Back pain location: low back pain Chronicity: acute Sciatica presence: unspecified whether sciatica present Qualified Code(s): M54.5 - Low back pain
[2021-04-04] MEDS: REMDESIVIR 100 MG in SODIUM CHLORIDE 0.9% 230 ML IV SCH (20:28)
[2021-04-04] MEDS: SODIUM CHLORIDE 0.9% 10ML FLUSH IV SCH (20:35)
[2021-04-05 07:51] LABS: Calcium 8.3 mg/dl (8.5-10.1); Creatinine Clr Calc Pharmacy 185.6 ml/min; Est GFR (African American) 138.8 ml/min; Est GFR (Non-African American) 119.8 ml/min; Potassium 3.7 mmol/L (3.5-5.1)
[2021-04-05] MEDS ORDERED: metFORMIN HCL 500 MG TAB PO SCH (08:00)
[2021-04-05] MEDS: INSULIN GLARGINE SOLOSTAR 100 UNITS/ML 3 ML PEN SC SCH (08:30)
[2021-04-05] MEDS: INSULIN ASPART 100 UNITS/ML 3 ML PEN SC SCH ×2 (08:30→12:16)
[2021-04-05] MEDS ORDERED: INSULIN HUMAN NPH SC SCH (09:00)
[2021-04-05] MEDS ORDERED: SACCHAROMYCES BOULARDII 250 MG CAP PO SCH (09:00)
[2021-04-05] MEDS: MULTIVITAMIN TAB PO SCH (09:23)
[2021-04-05] MEDS: CYANOCOBALAMIN 500 MCG TABLET (VITAMIN B-12) PO SCH (09:23)
[2021-04-05] MEDS: lisinopril 10 MG TAB PO SCH (09:24)
[2021-04-05] MEDS: ASPIRIN 81 MG ECTAB PO SCH (09:24)
[2021-04-05] MEDS: dexAMETHasone 6 MG in SYRINGE 0 ML IV SCH (09:24)
[2021-04-05] MEDS: guaiFENesin 600 MG TABCR PO SCH (09:25)
[2021-04-05] MEDS: ENOXAPARIN 80 MG/0.8 ML SYR SQ SCH (09:26)
--- NOTE | 2021-04-05 10:52 | Discharge Summary ---
Date of Service April 05, 2021 Admission HPI Per Admitting Provider 45yo male with h/o T2DM and HTN presents with illness since Saturday of this week. Patient states he started with runny nose and congestion at that time along with fatigue and loss of appetite. He felt well enough to go to work on Saturday but since then all symptoms have worsened. No fevers, but having cold chills & sweats. He lost his sense of taste yesterday. Has had productive cough for several days, much worse in the last 2 days. He then began to have significant BROCK yesterday, and this progressed today. He can only take a few steps before he becomes severely dyspneic. No diarrhea or emesis. Did not have his COVID vaccine. He mentions he was in the ER last weekend for "sciatica" of the LLE. Was placed on prednisone at that time. Principal Diagnosis COVID-19 Pneumonia, Acute respiratory failure with hypoxia Discharge Exam Constitutional WD/WN, vitals as above + morbidly obese Eyes + anicteric sclerae Neck trachea midline, no thyromegaly Respiratory normal respiratory effort, lungs clear to auscultation Cardiovascular RRR, no murmur, no edema Chest (Breasts) Chest: normal inspection of chest Gastrointestinal (Abdomen) normal bowel sounds, soft, nontender, no hepatosplenomegaly Musculoskeletal Extremities: extremities normal to inspection; no cyanosis and no clubbing Skin no rashes, warm and dry Neurologic moves all extremities and awake; no focal motor deficits Psychiatric A+Ox3, euthymic affect Lymphatic no lymphedema Discharge Data Allergies Allergy/AdvReac Type Severity Reaction Status Date / Time No Known Allergies Allergy Unverified 03/31/21 16:35 Consultations 03/31/21 17:08 ED Decision to Admit Stat 04/01/21 11:24 Consult Pulmonology Routine Ordered Studies 03/31/21 13:20 CT angio chest PE protocol Stat Chest CTA 03/31/21 13:20 CT ANGIOGRAM OF THE CHEST CLINICAL HISTORY: Dyspnea. Hypoxia. COMPARISON STUDY: Chest x-ray dated 03/31/2021. TECHNIQUE: Following the IV administration of 118 cc of Optiray 320, CT angiogram of the chest was performed from the upper abdomen to the thoracic inlet utilizing the pulmonary embolus protocol. Images are reviewed in the axial, sagittal, and coronal planes. 3-D MIPS images are created and assessed. IV contrast was administered without complication. A dose lowering technique was utilized adhering to the principles of ALARA. The examination is significan tly compromised by motion artifact. CT DOSE: 620.97 mGycm FINDINGS: Thyroid: Imaged portions of the thyroid gland are normal in size and attenuation. Thoracic aorta: The thoracic aorta is normal in caliber and demonstrates standard 3-vessel arch anatomy. No dissection is seen. Pulmonary vasculature: The pulmonary trunk is normal in caliber. There are no filling defects identified in main, lobar, or proximal segmental pulmonary branches to suggest pulmonary embolus. Evaluation of the segmental and subsegmental branches is severely degraded by motion artifact. Heart: The heart is top normal in size and without pericardial effusion. Lungs and pleural spaces: Evaluation of the lung parenchyma is significantly degraded by motion artifact. Multifocal airspace consolidation is seen throughout both lungs. No pleural effusion is identified. The trachea and central airways are clear. Mediastinum: There are numerous prominent subcentimeter mediastinal nodes. Julieth: Mildly enlarged hilar nodes measure up to 14 mm in short axis. Axillae: There is no axillary lymphadenopathy. Upper abdomen: The spleen is enlarged measuring at least 14.3 cm in length. The liver appears steatotic. A small hiatal hernia is noted. Skeletal structures: No lytic or blastic bony lesions are seen. IMPRESSION: 1. Significantly motion compromised examination. 2. There is no evidence of central pulmonary embolus in the main, lobar, or proximal segmental pulmonary arteries. 3. Multifocal airspace consolidation is seen throughout both lungs, typical in appearance for multifocal pneumonia. Radiographic follow-up to resolution is recommended. 4. No pleural effusion. 5. The liver appears steatotic and there is splenomegaly. 6. Mildly enlarged mediastinal and hilar nodes are likely reactive. ACT 112: Negative or not required by law. Electronically signed by: Osman Ac M.D. 03/31/2021 4:31 PM Chest X-Ray 03/31/21 13:20 XR chest 1V portable CLINICAL HISTORY: SEPSIS COMPARISON STUDY: None FINDINGS: No pneumothorax. No pleural effusion. Patchy airspace opacities are seen throughout bilateral lungs likely representing multifocal pneumonia. Cardiomediastinal silhouette is within normal limits in size. Pulmonary vasculature is obscured.. Osseous structures: unremarkable IMPRESSION: 1. Extensive patchy opacities throughout bilateral lungs could represent multifocal pneumonia/Covid. ACT 112: Negative or not required by law. The above report was generated using voice recognition software. It may contain grammatical, syntax or spelling errors. Electronically signed by: Chichi Langston DO 03/31/2021 2:58 PM Chest X-Ray 04/03/21 08:00 XR chest 1V portable CLINICAL HISTORY: COVID pneumonia COMPARISON STUDY: March 31, 2021 FINDINGS: No pneumothorax. Interval development of minimal blunting of the right costophrenic angle which could be due to increased density of adjacent airspace opacities or small right pleural effusion. Lung volumes are decreased with crowded lung markings. Patchy airspace opacities throughout bilateral lungs are slightly improved since recent prior study. Cardiomediastinal silhouette is prominent which could be due to low inspiratory effort and portable technique. Vasculature is obscured.. Osseous structures: Mild degenerative changes of the spine. IMPRESSION: 1. Minimal interval improvement of multifocal pneumonia. 2. Possible small right pleural effusion or minimal silhouetting of the right costophrenic angle due to airspace opacities. Low inspiratory effort limits evaluation. ACT 112: Negative or not required by law. The above report was generated using voice recognition software. It may contain grammatical, syntax or spelling errors. Electronically signed by: Chichi Langston DO 04/03/2021 11:22 AM Diabetes Follow up Diabetes Follow-up Needed for HgbA1c >9% Hospital Course (1) Pneumonia due to COVID-19 virus: Extensive, severe b/l COVID-19 pneumonia. Worsening respiratory symptoms in the 48 hours prior to admission he was about 5 days into illness at time of admission Completed 6 days of IV dexamethasone --> will plan to discontinue steroids at time of discharge as he is weaned off O2 and having significant hyperglycemia and insulin requirement completed 5 days of Remdesivir continue mucinex, flutter valve, incentive spirometry, proning upon discharge was up to 12L wall high flow morning of 04/01, belly breathing great response to Lasix 40mg IV daily x2 on 04/01 and 04/02 Continues to do well and is now weaned to room air at rest and with ambulation on day of discharge CRP was 16, appreciate pulmonology consult, no need for Tocilizumab since oxygen requirements improving CRP down to 2.9 Chest x-ray 04/03 is about the same but clinically improved Plan to repeat CXR in 4 weeks to ensure infiltrates resolved Received Lovenox 0.5 mg/KG SQ BID for prophylaxis and will dc to home with Xarelto 10mg daily x 35 days given high risk for VTE with obesity, DMII, HTN, COVID-19, prolonged hospitalization, etc. Given precautions for bleeding to return (2) Acute respiratory failure with hypoxia: 2nd to COVID-19 pneumonia. great response to steroids, flutter valve and lasix Weaned off O2 as above (3) Essential hypertension: Continue lisinopril BP stable (4) Type 2 diabetes mellitus: hyperglycemic in 300s on 04/01, due to dexamethasone, improved with very large doses of insulin Continue Lantus at home 20 units BID Increase home metformin to 1000mg po bid Plan to dc to home on Lantus bid dosing, metformin 1000mg bid, and he will restart Trulicity Needs outpt close follow up HgbA1C severely uncontrolled at 12.0% Plan to dc steroids at time of discharge (5) Morbid obesity: BMI 47 Discussed weight loss to continue after discharge, has already lost 85lbs in last year (6) Snoring: Patient with likely severe YEIMI based on history. Low threshold for BIPAP during this stay with any clinical worsening. Would benefit from sleep study as an outpatient (7) Back pain: Seen in ER for such about 1 week ago. Steroids for #1 should help this issue. Improved (8) DVT prophylaxis: lovenox 0.5mg/kg BID due to high risk of VTE while hospitalized w/ COVID- 19 and home with Xarelto as above Disposition-dc to home Total Time Total Time Spent Total Time Spent (In Minutes): 35 min Discharge Plan Discharge Items Patient Disposition: Home - Self-Care Reason For Visit: COVID-19 PNEUMONIA Discharge Diagnosis: COVID-19 Pneumonia, Acute respiratory failure with hypoxia Condition on Discharge: Fair Activity: As commented below Exercise/Sports: Gradually increase as tolerated Non-emergency contact: Primary Care Provider Call non-emergency contact if: you have any medication questions, your symptoms worsen, you have a fever and your temperature is above 101 Follow-up/Referrals: Nico Arango PA-C [Primary Care Provider] - (Follow up within 1-2 weeks.) Diet: Carb Consistent or DM2 and Heart Healthy Addtl Attending Provider Instructions: You were admitted with COVID and pneumonia with low oxygen levels. You were treated with dexamethasone (steroids), Remdesevir (anti-viral medication) and had improvement. You were weaned off oxygen completely by the day of discharge. Please continue to increase your activity level as tolerated, and check your pulse oximeter readings several times throughout the day. If your oxygen levels are lower than 88%, please call your doctor or come back in to get checked out at the hospital. You should have a repeat chest xray in 4 weeks to ensure your pneumonia is resolved. Please continue using your flutter valve and incentive spirometer three times daily. If you develop leg pain or swelling, chest pains, or worsening shortness of breath, please return right away to the hospital as these can be signs of a blood clot. COVID-19 is well known for causing blood clots to form and Xarelto will be prescribed for you to take for the next 30 days to prevent blood clots. Your diabetes is severely uncontrolled; your hemoglobin A1C was 12.0% here. You were started on Lantus as an insulin to be taken twice a day and your metformin was increased to 1000mg twice a day. Please check your blood glucose first thing in the morning, before lunch, before dinner, and at bedtime.Follow up with your PCP regarding improved glucose control. You should have a sleep study to get checked out for sleep apnea once you recover from COVID. Pending Studies at Discharge: No Stand-Alone Forms: My [facility] [employer], Work/School Release Medications and DC Order Prescriptions: New Saccharomyces boulardii [Florastor] 250 mg Capsule 250 mg PO DAILY Qty: 30 RF: 0 Lantus Solostar U-100 Insulin 100 unit/mL (3 mL) Insulin Pen 20 unit SC BID Qty: 15 RF: 0 metformin 1,000 mg tablet 1,000 mg PO BID Qty: 60 RF: 0 Xarelto 10 mg tablet 10 mg PO DAILY 35 Days Qty: 35 RF: 0 (DME) pen needle, diabetic 32 gauge x 3/16" needle See Rx Instructions .Route Qty: 50 RF: 0 cholecalciferol (vitamin D3) [Vitamin D3] 25 mcg (1,000 unit) tablet 1,000 unit PO DAILY Qty: 30 RF: 0 Continued multivitamin Tablet 1 tab PO QAM RF: 0 Garlique 400 mg Tablet,Delayed Release (Dr/Ec) 0 mg PO QAM RF: 0 aspirin [Aspir-Low] 81 mg Tablet,Delayed Release (Dr/Ec) 81 mg PO QAM RF: 0 cyanocobalamin (vitamin B-12) [Vitamin B-12] 500 mcg Tablet 0 mcg PO QAM RF: 0 lisinopril 10 mg Tablet 10 mg PO QAM RF: 0 Vicks NyQuil 7.5-60-30-1,000 mg/30 mL Liquid 30 ml PO QID PRN (Reason: Cold Symptoms) RF: 0 Discontinued metformin 1,000 mg Tablet 500 mg PO BID RF: 0 prednisone 20 mg tablet 20 mg PO QAM RF: 0 Discharge Orders: Discharge Order (Routine); Ordered 04/05/21 Ordered By: Catalina Ball/Other Patient Handouts: A1C, Managing Type 2 Diabetes Admission Data Admit Date/Time: 03/31/21 18:42 Attending Provider: Catalina Sánchez Admit Provider: Vishnu Arriaga Primary Care Provider: Nico Arango Other Providers: Vishnu Arriaga ; Kirby Andujar Coding Level of Care Code D/C DAY MANAGEMENT >30 MINS Diagnoses Pneumonia due to COVID-19 virus U07.1; J12.82 Acute respiratory failure with hypoxia J96.01 Essential hypertension I10 Type 2 diabetes mellitus E11.9 Morbid obesity E66.01 Snoring R06.83 Back pain M54.5 Back pain laterality: left Back pain location: low back pain Chronicity: acute Sciatica presence: unspecified whether sciatica present DVT prophylaxis Z29.9
== END 2021-04-05 13:23 | disposition home or self-care (01) | DRG 177 ==
LOC: ED 12:45 → 2S 18:42 → SUATTDRO 18:42 → 2S 21:00
DX: Z68.42 Body mass index [BMI] 45.0-49.9, adult; I11.0 Hypertensive heart disease with heart failure; J12.82 Pneumonia due to coronavirus disease 2019; J96.01 Acute respiratory failure with hypoxia; U07.1 COVID-19; M54.9 Dorsalgia, unspecified; Z83.3 Family history of diabetes mellitus; E66.01 Morbid (severe) obesity due to excess calories; Z79.84 Long term (current) use of oral hypoglycemic drugs; I50.9 Heart failure, unspecified; E11.9 Type 2 diabetes mellitus without complications; Z87.891 Personal history of nicotine dependence; Z79.82 Long term (current) use of aspirin